=== PATIENT | female | born 1945 | race Caucasian/White ===

== ENCOUNTER 2024-09-30 10:44 | Emergency (ER) | payer OTHER, SELFPAY ==
[2024-09-30] VITALS (7 sets, daily range): BP systolic 102–147; BP diastolic 45–90; PULSE 74–84; RESP 16; TEMP 36–37; O2SAT 93–99; BMI 28.3
--- NOTE | ~2024-09-30 | XR_ITS ---
CLINICAL HISTORY: confusion, weakness 1 view chest x-ray Comparison: None provided Findings: No consolidation or effusion. Mild atelectasis of the lung base. Enlargement of the cardiopericardial silhouette. No acute fracture. IMPRESSION: 1. No acute findings. This document has been electronically signed by: Law Arredondo MD on 09/30/2024 14:19:39
--- NOTE | 2024-09-30 11:04 | ED_ITS ---
HPI - General Adult General Chief complaint: General Medical Stated complaint: medicated with unknown meds Time Seen by Provider: 09/30/24 11:23 Source: patient and family (patient's daughter) Mode of arrival: ambulatory Limitations: no limitations History of Present Illness ED Provider: Danni Bills PA-C HPI narrative: Patient is a 79 year old female with past medical history of dementia, DM, seizures, depression, and anxiety presenting to ER on 09/30 with her daughters with chief complaint of increased confusion and elopement from her home at 3AM this morning. Patient states she woke up around 3AM and felt confused and scared of the nighttime which caused her to leave her home. Her daughters were called by the police department as patient was found walking on street without shoes. Her daughters report that she has history of daytime elopements but has never eloped at nighttime before. Patient has VNA services twice daily and has a nursing home social worker for 7 hours daily as allowed by [facility]. Her daughters also report that the patient has a boyfriend of 7 years who visits her daily and has been known to give the patient his prescribed medications. Daughters believe the patient's boyfriend gave the patient his prescribed Klonopin, Seroquel, clonidine, and prazosin yesterday, which could be contributing to her increased confusion. They have tried to stop her boyfriend from doing this in the past without success; they were told the patient would need to file a restraining order however the patient does not want to do so. Patient denies confusion, pain, dizziness, anxiety, or any other symptoms currently. Associated symptoms: denies other symptoms Related Data Home Medications ?Medication ?Instructions ?Recorded ?Confirmed alendronate 70 mg tablet 70 mg PO WE@89909/30/24 amlodipine 5 mg-benazepril 20 mg 1 cap PO DAILY 09/30/24 capsule docusate sodium 100 mg capsule 100 mg PO BID PRN Const ipation 09/30/24 09/30/24 dulaglutide 4.5 mg/0.5 mL 4.5 mg subcut WE@89909/30/24 [facility] fluticasone propionate 220 2 puff inhalation BID 09/3009/30/24 mcg/actuation HFA aerosol inhaler gabapentin 400 mg capsule 400 mg PO TID 09/30/2409/30 insulin aspart U-100 100 unit/mL 16 - 22 unit subcut T ID 09/30/24 09/30/24 (3 mL) subcutaneous pen insulin glargine 100 unit/mL (3 30 unit subcut BEDTIME 09/30/24 09/30/24 mL) subcutaneous pen (Lantus Solostar U-100 Insulin) loratadine 10 mg tablet 10 mg PO DAILY 09/30/2409/19 lorazepam 1 mg tablet 1 mg PO BID 09/30/24 5 melatonin 5 mg tablet 5 mg PO BEDTIME 09/30/2409/19 metoprolol tartrate 50 mg tablet 50 mg PO BID 09/30/24 09/30/24 mirtazapine 30 mg tablet 30 mg PO BEDTIME 09/30/24 omeprazole 40 mg capsule,delayed 40 mg PO DAILY@0630 0 09/30/24 09/30/24 release polyethylene glycol 3350 17 17 g PO DAILY 09/30/2409/19 gram/dose oral powder (Miralax) risperidone 0.25 mg tablet 0.25 mg PO DAILY 09/30/24 0 09/30/24 risperidone 1 mg tablet 1 mg PO BEDTIME 09/30/2409/19 simvastatin 40 mg tablet 40 mg PO BEDTIME 09/30/24 topiramate 25 mg tablet 25 mg PO BID 09/30/24 triamcinolone acetonide 0.1 % 1 appl topical BID dry s calp 09/30/24 09/30/24 topical ointment vilazodone 40 mg tablet 40 mg PO DAILY 09/30/2409/19 zolpidem 10 mg tablet 10 mg PO BEDTIME 09/30/24 Allergies Allergy/AdvReac Type Severity Reaction Status Date / Time No Known Allergies Allergy Verified 09/30/24 11:09 Review of Systems 2 Constitutional: Constitutional: Reports no additional constitutional complaints, Denies chills, Denies fever(s) and Denies night sweats Eyes: Eyes: Reports no additional eye complaints, Denies blurry vision, Denies change in vision, Denies diplopia, Denies eye discharge, Denies loss of vision and Denies eye pain ENT: Denies dizziness Cardiovascular: Cardiovascular: Reports no additional cardiovascular complaints, Denies chest pain, Denies lightheadedness, Denies Loss of Consciousness and Denies dyspnea Respiratory: Respiratory: Reports no additional respiratory complaints and Denies dyspnea Gastrointestinal: Gastrointestinal: Reports no additional gastrointestinal complaints, Denies abdominal pain, Denies melena, Denies hematochezia, Denies change in bowel habits and Denies change in stool character Genitourinary: Genitourinary: Denies hematuria, Denies urinary frequency, Denies dysuria, Denies urinary incontinence, Denies urinary hesitancy and Denies urinary urgency Musculoskeletal: Musculoskeletal: Reports no additional musculoskeletal complaints, Denies numbness and Denies tingling Neurologic: Reports confusion (as reported by the patient's daughters), Denies dizziness, Denies loss of vision, Denies numbness and Denies tingling Psychiatric: Psychiatric: Reports no additional psychiatric complaints and Reports confusion (as reported by the patient's daughters) Endocrine: Endocrine: Reports no additional endocrine complaints Hematologic/Lymphatic: Hematologic/Lymphatic: Reports no additional hematologic/lymphatic complaints Allergic/Immunologic: Allergic/Immunologic: Reports no additional allergic/immunologic complaints PMFSH Past Medical History Attestation statement: The following information was validated with the patient. (all information validated with the patient's daughter) Source: old records reviewed, obtained from family (patient's daughters provided additional history and confirmed the history provided by the patient. ) and nursing notes reviewed Physical Exam ED Vital Signs: Vital Signs - 24 hr 10/04/24 14:00 10/04/24 19:38 10/04/24 19:48 Temperature 97.5 F 97.3 F Pulse Rate 72 95 93 Respiratory Rate 18 16 18 Blood Pressure 110/61 151/70 H Pulse Oximetry 90 L 97 Oxygen Delivery Method Room Air Room Air 10/04/24 20:07 10/05/24 05:50 Temperature 97 F Pulse Rate 93 64 Respiratory Rate 14 Blood Pressure 151/70 H 135/70 Pulse Oximetry 96 Oxygen Delivery Method Room Air BMI result Body Mass Index 28.3 Const General: cooperative, no acute distress, alert, awake and confusion (as reported by the patient's daughters) Nutritional Appearance: well nourished Orientation/consciousness: oriented to person, oriented to place and confusion (as reported by the patient's daughters) [facility] Head: Yes normal to inspection and Yes atraumatic Ears: hearing grossly normal bilaterally and external ears normal General nose exam: Normal external nose present, no nasal discharge noted and no epistaxis Face and sinus: Yes normal facial exam, No abrasion and No laceration Mouth: Normal oral and palatal mucosa present, no drooling and no muffled voice Eyes General: appearance normal, both eyes and all related structures Periorbital: periorbital findings normal Eyelids: Yes eyelids normal Conjunctivae: conjunctivae normal Pupils: Equal, round and reactive pupils present EOM: EOMs intact bilaterally Neck Neck: Yes normal visual inspection, Yes full ROM and Yes no lymphadenopathy Resp Effort & Inspection: normal respiratory effort and able to speak in complete sentences Neuro General: oriented to person, oriented to place, moves all extremities, CN's II- XI intact bilaterally and confusion (as reported by the patient's daughters) Cranial nerves: Yes Equal, round and reactive pupils present Extrem General: Yes normal to inspection, Yes full ROM and Yes capillary refill normal Psych Appearance: grossly normal Mental Status: other (Oriented to person and place only) Affect: normal affect Attitude: cooperative Thought process: Normal thought process present Thought content: Normal thought content present Insight: Good insight present (Psych) Course Course Course Narrative: This is a rapid medical exam performed by Austin Garcia NP: Additional HPI, ROS, PE not included below will be deferred to primary provider. Patient is a 79-year-old female with reported history of dementia, essential tremors, IDDM, presenting to the ED with daughter and [facility] who report that patient was found by police at 3am after wandering around outside. Daughter and [facility] feel she has been increasingly confused, not even recognizing her home. Only has [facility] services from 9-4. Daughter states that patient has a male combine inspector who comes to the patient's apartment and medicates her with his medications, daughter states this causes patient to become even more confused. Plan: labs, UA, viral panel to start, additional evaluation to be determined by primary provider 09/30/2024 1458 Danni Bills PA-C ---> Case management has requested a psychiatric consultation for this patient. Consult placed. Time: 15: Date: 10/01/24 Provider: SARAH Elena Patient in physician observation for case management needs. No acute events reported overnight.? No current issues or complaints. Patient does have a history of dementia, psych consult ordered for capacity. OT eval for MOCA and ACL. VS stable. Pending case management disposition. Will continue to monitor. 10/02/2024 0823 Danni Bills PA-C ----> Observation continues. Patient continues to be followed by case management. 10/03/24 1405 RENETTA Garcia: Physician observation continued, no overnight events reported by nursing. Lorazepam ordered for anxiety as patient prescribed as b.i.d. at home, is only ordered q.h.s. here. No note from psych citing change in Ativan dosing. Case management following for disposition. 10/04/24 15:00 RENETTA Garcia: Physician observation continued, no overnight events reported by nursing. Per case management, plan is for patient to discharge home on Tuesday when more services are available and daughters will provide overnight coverage. Cm following for disposition. Time: 08:31 Date: 10/05/24 Provider: Joana Abreu CNP Patient in physician observation for case management needs; pending discharge today with [facility] and daughter's facilitating overnight coverage 18/10 care. Has had psychiatry evaluation, given advanced dementia recommendation for invoking healthcare proxy. No acute events reported overnight.? Will continue to monitor. Anticipating discharge home with daughter and resumption of VNA services at 15:00 this evening Medications Administered Discontinued Medications Generic Name Dose Route Start Last Admin Trade Name Freq PRN Reason Stop Dose Admin Acetaminophen 650 mg 10/01/24 08:35 10/04/24 19:46 Acetaminophen 325 Mg Tablet PO 650 mg Q6H PRN Administration Pain, Moderate(Pain Scale 4-6) Amlodipine Besylate 5 mg 10/01/24 09:00 10/05/24 08:56 Amlodipine Besylate 5 Mg Tablet PO 5 mg DAILY TOMASA Administration Atorvastatin Calcium 20 mg 09/30/24 21:00 10/04/24 20:07 Atorvastatin Calcium 20 Mg Tablet PO 20 mg BEDTIME TOMASA Administration Diphenoxylate HCl/Atropine 2 tab 10/04/24 20:24 10/04/24 21:22 Diphenoxylate/Atrop 2.5/0.025 Tablet PO 10/04/24 20:25 2 tab ONCE ONE Administration Docusate Sodium 100 mg 09/30/24 13:45 10/01/24 20:40 Docusate Sodium 100 Mg Capsule PO 100 mg BID PRN Administration Constipation Fluticasone Propionate 2 puff 09/30/24 20:00 10/05/24 07:43 Fluticasone Propionate 250 Mcg Blst.W.Dev INHALE 2 puff RBID TOMASA Administration Gabapentin 400 mg 09/30/24 15:00 10/05/24 14:56 Gabapentin 400 Mg Capsule PO 400 mg TID TOMASA Administration Insulin Glargine 30 unit 09/30/24 21:00 10/04/24 20:06 Insulin Glargine,Hum.Rec.Anlog 100 Unit/Ml 10 Ml Vial SUBCUT 30 unit BEDTIME TOMASA Administration Insulin Human Lispro 0 unit 09/30/24 16:30 10/05/24 11:45 Insulin Lispro 100 Unit/Ml 3 Ml Vial SUBCUT 4 unit QIDACHS TOMASA Administration Protocol Lisinopril 20 mg 10/01/24 09:00 10/05/24 08:56 Lisinopril 20 Mg Tablet PO 20 mg DAILY TOMASA Administration Loratadine 10 mg 10/01/24 09:00 10/05/24 08:56 Loratadine 10 Mg Tablet PO 10 mg DAILY TOMASA Administration Lorazepam 2 mg 09/30/24 13:12 09/30/24 13:25 Lorazepam 1 Mg Tablet PO 09/30/24 13:13 2 mg ONCE ONE Administration Lorazepam 1 mg 09/30/24 21:00 10/01/24 08:27 Lorazepam 1 Mg Tablet PO 1 mg BID TOMASA Administration Lorazepam 1 mg 10/01/24 21:00 10/04/24 20:07 Lorazepam 1 Mg Tablet PO 1 mg BEDTIME TOMASA Administration Lorazepam 1 mg 10/02/24 15:50 10/02/24 15:54 Lorazepam 1 Mg Tablet PO 10/02/24 15:51 1 mg ONCE ONE Administration Lorazepam 1 mg 10/03/24 14:04 10/03/24 14:12 Lorazepam 1 Mg Tablet PO 10/03/24 14:05 1 mg ONCE ONE Administration Melatonin 6 mg 09/30/24 21:00 10/04/24 20:07 Melatonin 3 Mg Tablet PO 6 mg BEDTIME TOMASA Administration Metoprolol Tartrate 50 mg 09/30/24 21:00 10/05/24 08:55 Metoprolol Tartrate 50 Mg Tablet PO 50 mg BID TOMASA Administration Protocol Mirtazapine 30 mg 09/30/24 21:00 10/04/24 20:07 Mirtazapine 30 Mg Tablet PO 30 mg BEDTIME TOMASA Administration Omeprazole 40 mg 10/01/24 06:30 10/05/24 06:44 Omeprazole 40 Mg Capsule.Dr PO 40 mg DAILY@0630 TOMASA Administration Polyethylene Glycol 17 gm 10/01/24 09:00 10/05/24 08:55 Polyethylene Glycol 3350 17 Gm Powd.Pack PO 17 gm DAILY TOMASA Administration Risperidone 0.25 mg 09/30/24 13:15 10/05/24 08:56 Risperidone 0.25 Mg Tablet PO 0.25 mg DAILY TOMASA Administration Risperidone 1 mg 09/30/24 21:00 10/04/24 20:07 Risperidone 1 Mg Tablet PO 1 mg BEDTIME TOMASA Administration Topiramate 25 mg 09/30/24 21:00 10/05/24 08:56 Topiramate 25 Mg Tablet PO 25 mg BID TOMASA Administration Triamcinolone Acetonide 1 appl 09/30/24 21:00 10/05/24 08:55 Triamcinolone Acet 0.1 % Oint 15 Gm Tube TOPICAL 1 appl BID TOMASA Administration Vilazodone HCl 40 mg 09/30/24 13:15 09/30/24 14:52 Vilazodone Hcl 40 Mg Tablet PO Not Given DAILY TOMASA Vilazodone HCl 40 mg 09/30/24 14:00 10/05/24 08:56 Vilazodone Hcl 20 Mg Tablet PO 40 mg DAILY TOMASA Administration Zolpidem Tartrate 10 mg 09/30/24 21:00 09/30/24 21:27 Zolpidem Tartrate 5 Mg Tablet PO 10 mg BEDTIME TOMASA Administration Zolpidem Tartrate 10 mg 10/01/24 21:34 10/01/24 22:43 Zolpidem Tartrate 5 Mg Tablet PO 10/01/24 21:35 10 mg ONCE ONE Administration Medical Decision Making Medical Decision Making MDM Narrative: Patient is a 79 year old female with past medical history of dementia, DM, seizures, depression, and anxiety presenting to ER on 09/30 with her daughters with chief complaint of increased confusion and elopement from her home at 3AM this morning. Patient's physical exam showed a pleasantly confused individual. Patient's blood work showed a mildly elevated WBC count of 15.5 and sodium of 132 but otherwise unremarkable. Patient's WBC count is likely a stress reaction given there is no source of infection. Patient's urine showed no acute process. Patient's chest x-ray showed no acute process. I explained my physical exam findings as well as all test results to the patient and the patient's daughter. I answered all questions asked by the patient and the patient's daughter. Given the patient's worsening confusion / dementia and need for resources, will have patient remain in the department to be evaluated by the physical therapy and case management teams. Patient and the patient's daughter verbalized agreement and understanding with this treatment plan and the patient remaining in the department. Differential Diagnosis Differential Diagnoses: The differential diagnosis associated with the presentation includes Worsening confusion Admission/Observation Consideration of admission/observation: Escalation of care including admission/observation considered Patient would have been admitted to the hospital had her work up had any findings where hospital admission was appropriate and her clinical presentation warranted hospital admission. Lab Data [facility] Lab Attestation statement: I reviewed the patient's lab results. My interpretation of these results are in the MDM Rationale portion of this note. 10/01/24 13:04 09/30/24 11:20 Labs: Lab Results 09/30/24 09/30/24 09/30/24 Range/Units 11:20 11:21 13:03 WBC 15.5 H (4.8-10.8) X10*3/uL RBC 4.47 (4.20-5.50) X10*6/uL Hgb 10.9 L (12.0-16.0) g/dl Hct 34.1 L (37.0-47.0) % MCV 76.3 L (80.0-98.0) fL MCH 24.4 L (27.0-33.0) pg MCHC 32.0 (31.0-35.0) g/dl RDW 15.3 (11.0-16.0) % Plt Count 280 (160-400) X10*3/uL MPV 8.3 L (9.4-12.3) fL Immature Gran % (Auto) 0.4 (0.0-0.4) % Neut % (Auto) 79.7 H (45-73) % Lymph % (Auto) 13.6 L (20-40) % Potter % (Auto) 5.7 (2-11) % Eos % (Auto) 0.2 (0-4) % Baso % (Auto) 0.4 (0-2) % Lymph # (Auto) 2.1 (1.2-4.9) X10*3/uL Potter # (Auto) 0.9 (0.1-1.2) X10*3/uL Eos # (Auto) 0.0 (0.0-0.4) X10*3/uL Baso # (Auto) 0.1 (0.0-0.2) X10*3/uL Abs Immat Gran (auto) 0.06 H (0.00-0.03) X10*3/uL Absolute Neuts (auto) 12.4 H (2.0-8.3) x10*3/uL Absolute Nucleated RBC 0.000 (0.0-0.012) X10*3/uL Nucleated RBC % (auto) 0.0 (0.0-0.2) /100WBC Sodium 132 L (135-145) mmol/L Potassium 4.6 (3.3-5.1) mmol/L Chloride 98 (96-108) mmol/L Carbon Dioxide 23 (22-29) mmol/L Anion Gap 16 (12-20) BUN 8 L (9-16) mg/dL Creatinine 0.63 (0.5-1.4) mg/dL Estim Creat Clear Calc 75.6 Estimated GFR > 60 POC Glucose (60-115) mg/dL Random Glucose 242 H (60-115) mg/dL Estimat Average Glucose mg/dL Hemoglobin A1c % (<6.0) % Calcium 9.0 (8.4-10.2) mg/dL Iron (30-160) mcg/dL TIBC (228-428) mcg/dL % Saturation (15-50) % Unsat Iron Binding ug/dL Total Bilirubin 0.2 (0.0-1.0) mg/dL AST 33 H (5-31) U/L ALT 27 (0-31) U/L Alkaline Phosphatase 117 (39-117) U/L Total Protein 7.8 (6.5-8.0) g/dL Albumin 3.7 (3.5-5.0) g/dL Vitamin B12 (200-900) pg/mL Folate (> or = 4.0) ng/mL TSH (0.32-4.0) uIU/mL Urine Color Yellow Urine Appearance Clear Urine pH 6.5 (5.0-9.0) Ur Specific [place] 1.020 (1.005-1.025) Urine Protein 30 (1+) H (Neg-Trace) mg/dL Urine Glucose (UA) >=1000 H (Negative) mg/dL Urine Ketones Trace (Negative) mg/dL Urine Blood Negative (Negative) Urine Nitrite Negative (Negative) Ur Leukocyte Esterase Negative (Negative) Urine RBC 0-2 (0-2) /HPF Urine WBC 0-5 (0-5) /HPF Ur Squamous Epith Cells 3-5 (0-2) /HPF Urine Bacteria Trace (None Seen) Hyaline Casts 0-2 (0-2) /LPF Urine Opiates Screen Not Detected (Not Detect) Ur Buprenorphine Scrn Not Detected (Not Detect) ng/mL Ur Oxycodone Screen Not Detected (Not Detect) ng/mL Urine Methadone Screen Not Detected (Not Detect) ng/mL Urine Fentanyl Screen Not Detected (Not Detect) Ur Barbiturates Screen Not Detected (Not Detect) Ur Phencyclidine Scrn Not Detected (Not Detect) Ur Amphetamines Screen Not Detected (Not Detect) U Benzodiazepines Scrn Not Detected (Not Detect) Urine Cocaine Screen Not Detected (Not Detect) U Marijuana (THC) Screen Not Detected (Not Detect) Ethyl Alcohol < 10 mg/dL Influenza Type A (PCR) NEGATIVE (Negative) Influenza Type B (PCR) NEGATIVE (Negative) RSV RNA Qual (PCR) NEGATIVE (Negative) SARS-CoV-2 RNA (RT-PCR) NEGATIVE (Negative) 09/30/24 09/30/24 10/01/24 Range/Units 19:33 21:28 08:11 WBC (4.8-10.8) X10*3/uL RBC (4.20-5.50) X10*6/uL Hgb (12.0-16.0) g/dl Hct (37.0-47.0) % MCV (80.0-98.0) fL MCH (27.0-33.0) pg MCHC (31.0-35.0) g/dl RDW (11.0-16.0) % Plt Count (160-400) X10*3/uL MPV (9.4-12.3) fL Immature Gran % (Auto) (0.0-0.4) % Neut % (Auto) (45-73) % Lymph % (Auto) (20-40) % Potter % (Auto) (2-11) % Eos % (Auto) (0-4) % Baso % (Auto) (0-2) % Lymph # (Auto) (1.2-4.9) X10*3/uL Potter # (Auto) (0.1-1.2) X10*3/uL Eos # (Auto) (0.0-0.4) X10*3/uL Baso # (Auto) (0.0-0.2) X10*3/uL Abs Immat Gran (auto) (0.00-0.03) X10*3/uL Absolute Neuts (auto) (2.0-8.3) x10*3/uL Absolute Nucleated RBC (0.0-0.012) X10*3/uL Nucleated RBC % (auto) (0.0-0.2) /100WBC Sodium (135-145) mmol/L Potassium (3.3-5.1) mmol/L Chloride (96-108) mmol/L Carbon Dioxide (22-29) mmol/L Anion Gap (12-20) BUN (9-16) mg/dL Creatinine (0.5-1.4) mg/dL Estim Creat Clear Calc Estimated GFR POC Glucose 135 H 231 H 255 H (60-115) mg/dL Random Glucose (60-115) mg/dL Estimat Average Glucose mg/dL Hemoglobin A1c % (<6.0) % Calcium (8.4-10.2) mg/dL Iron (30-160) mcg/dL TIBC (228-428) mcg/dL % Saturation (15-50) % Unsat Iron Binding ug/dL Total Bilirubin (0.0-1.0) mg/dL AST (5-31) U/L ALT (0-31) U/L Alkaline Phosphatase (39-117) U/L Total Protein (6.5-8.0) g/dL Albumin (3.5-5.0) g/dL Vitamin B12 (200-900) pg/mL Folate (> or = 4.0) ng/mL TSH (0.32-4.0) uIU/mL Urine Color Urine Appearance Urine pH (5.0-9.0) Ur Specific [place] (1.005-1.025) Urine Protein (Neg-Trace) mg/dL Urine Glucose (UA) (Negative) mg/dL Urine Ketones (Negative) mg/dL Urine Blood (Negative) Urine Nitrite (Negative) Ur Leukocyte Esterase (Negative) Urine RBC (0-2) /HPF Urine WBC (0-5) /HPF Ur Squamous Epith Cells (0-2) /HPF Urine Bacteria (None Seen) Hyaline Casts (0-2) /LPF Urine Opiates Screen (Not Detect) Ur Buprenorphine Scrn (Not Detect) ng/mL Ur Oxycodone Screen (Not Detect) ng/mL Urine Methadone Screen (Not Detect) ng/mL Urine Fentanyl Screen (Not Detect) Ur Barbiturates Screen (Not Detect) Ur Phencyclidine Scrn (Not Detect) Ur Amphetamines Screen (Not Detect) U Benzodiazepines Scrn (Not Detect) Urine Cocaine Screen (Not Detect) U Marijuana (THC) Screen (Not Detect) Ethyl Alcohol mg/dL Influenza Type A (PCR) (Negative) Influenza Type B (PCR) (Negative) RSV RNA Qual (PCR) (Negative) SARS-CoV-2 RNA (RT-PCR) (Negative) 10/01/24 10/01/24 10/01/24 Range/Units 11:14 13:04 16:38 WBC 13.0 H (4.8-10.8) X10*3/uL RBC 4.23 (4.20-5.50) X10*6/uL Hgb 10.4 L (12.0-16.0) g/dl Hct 32.1 L (37.0-47.0) % MCV 75.9 L (80.0-98.0) fL MCH 24.6 L (27.0-33.0) pg MCHC 32.4 (31.0-35.0) g/dl RDW 15.5 (11.0-16.0) % Plt Count 263 (160-400) X10*3/uL MPV 8.2 L (9.4-12.3) fL Immature Gran % (Auto) 0.4 (0.0-0.4) % Neut % (Auto) 71.7 (45-73) % Lymph % (Auto) 20.8 (20-40) % Potter % (Auto) 5.6 (2-11) % Eos % (Auto) 1.1 (0-4) % Baso % (Auto) 0.4 (0-2) % Lymph # (Auto) 2.7 (1.2-4.9) X10*3/uL Potter # (Auto) 0.7 (0.1-1.2) X10*3/uL Eos # (Auto) 0.1 (0.0-0.4) X10*3/uL Baso # (Auto) 0.1 (0.0-0.2) X10*3/uL Abs Immat Gran (auto) 0.05 H (0.00-0.03) X10*3/uL Absolute Neuts (auto) 9.3 H (2.0-8.3) x10*3/uL Absolute Nucleated RBC 0.000 (0.0-0.012) X10*3/uL Nucleated RBC % (auto) 0.0 (0.0-0.2) /100WBC Sodium (135-145) mmol/L Potassium (3.3-5.1) mmol/L Chloride (96-108) mmol/L Carbon Dioxide (22-29) mmol/L Anion Gap (12-20) BUN (9-16) mg/dL Creatinine (0.5-1.4) mg/dL Estim Creat Clear Calc Estimated GFR POC Glucose 238 H 164 H (60-115) mg/dL Random Glucose (60-115) mg/dL Estimat Average Glucose 203 mg/dL Hemoglobin A1c % 8.7 H (<6.0) % Calcium (8.4-10.2) mg/dL Iron 43 (30-160) mcg/dL TIBC 257 (228-428) mcg/dL % Saturation 17 (15-50) % Unsat Iron Binding 214 ug/dL Total Bilirubin (0.0-1.0) mg/dL AST (5-31) U/L ALT (0-31) U/L Alkaline Phosphatase (39-117) U/L Total Protein (6.5-8.0) g/dL Albumin (3.5-5.0) g/dL Vitamin B12 335 (200-900) pg/mL Folate 12.5 (> or = 4.0) ng/mL TSH 1.49 (0.32-4.0) uIU/mL Urine Color Urine Appearance Urine pH (5.0-9.0) Ur Specific [place] (1.005-1.025) Urine Protein (Neg-Trace) mg/dL Urine Glucose (UA) (Negative) mg/dL Urine Ketones (Negative) mg/dL Urine Blood (Negative) Urine Nitrite (Negative) Ur Leukocyte Esterase (Negative) Urine RBC (0-2) /HPF Urine WBC (0-5) /HPF Ur Squamous Epith Cells (0-2) /HPF Urine Bacteria (None Seen) Hyaline Casts (0-2) /LPF Urine Opiates Screen (Not Detect) Ur Buprenorphine Scrn (Not Detect) ng/mL Ur Oxycodone Screen (Not Detect) ng/mL Urine Methadone Screen (Not Detect) ng/mL Urine Fentanyl Screen (Not Detect) Ur Barbiturates Screen (Not Detect) Ur Phencyclidine Scrn (Not Detect) Ur Amphetamines Screen (Not Detect) U Benzodiazepines Scrn (Not Detect) Urine Cocaine Screen (Not Detect) U Marijuana (THC) Screen (Not Detect) Ethyl Alcohol mg/dL Influenza Type A (PCR) (Negative) Influenza Type B (PCR) (Negative) RSV RNA Qual (PCR) (Negative) SARS-CoV-2 RNA (RT-PCR) (Negative) 10/01/24 10/02/24 10/02/24 Range/Units 20:20 07:17 11:30 WBC (4.8-10.8) X10*3/uL RBC (4.20-5.50) X10*6/uL Hgb (12.0-16.0) g/dl Hct (37.0-47.0) % MCV (80.0-98.0) fL MCH (27.0-33.0) pg MCHC (31.0-35.0) g/dl RDW (11.0-16.0) % Plt Count (160-400) X10*3/uL MPV (9.4-12.3) fL Immature Gran % (Auto) (0.0-0.4) % Neut % (Auto) (45-73) % Lymph % (Auto) (20-40) % Potter % (Auto) (2-11) % Eos % (Auto) (0-4) % Baso % (Auto) (0-2) % Lymph # (Auto) (1.2-4.9) X10*3/uL Potter # (Auto) (0.1-1.2) X10*3/uL Eos # (Auto) (0.0-0.4) X10*3/uL Baso # (Auto) (0.0-0.2) X10*3/uL Abs Immat Gran (auto) (0.00-0.03) X10*3/uL Absolute Neuts (auto) (2.0-8.3) x10*3/uL Absolute Nucleated RBC (0.0-0.012) X10*3/uL Nucleated RBC % (auto) (0.0-0.2) /100WBC Sodium (135-145) mmol/L Potassium (3.3-5.1) mmol/L Chloride (96-108) mmol/L Carbon Dioxide (22-29) mmol/L Anion Gap (12-20) BUN (9-16) mg/dL Creatinine (0.5-1.4) mg/dL Estim Creat Clear Calc Estimated GFR POC Glucose 277 H 166 H 204 H (60-115) mg/dL Random Glucose (60-115) mg/dL Estimat Average Glucose mg/dL Hemoglobin A1c % (<6.0) % Calcium (8.4-10.2) mg/dL Iron (30-160) mcg/dL TIBC (228-428) mcg/dL % Saturation (15-50) % Unsat Iron Binding ug/dL Total Bilirubin (0.0-1.0) mg/dL AST (5-31) U/L ALT (0-31) U/L Alkaline Phosphatase (39-117) U/L Total Protein (6.5-8.0) g/dL Albumin (3.5-5.0) g/dL Vitamin B12 (200-900) pg/mL Folate (> or = 4.0) ng/mL TSH (0.32-4.0) uIU/mL Urine Color Urine Appearance Urine pH (5.0-9.0) Ur Specific [place] (1.005-1.025) Urine Protein (Neg-Trace) mg/dL Urine Glucose (UA) (Negative) mg/dL Urine Ketones (Negative) mg/dL Urine Blood (Negative) Urine Nitrite (Negative) Ur Leukocyte Esterase (Negative) Urine RBC (0-2) /HPF Urine WBC (0-5) /HPF Ur Squamous Epith Cells (0-2) /HPF Urine Bacteria (None Seen) Hyaline Casts (0-2) /LPF Urine Opiates Screen (Not Detect) Ur Buprenorphine Scrn (Not Detect) ng/mL Ur Oxycodone Screen (Not Detect) ng/mL Urine Methadone Screen (Not Detect) ng/mL Urine Fentanyl Screen (Not Detect) Ur Barbiturates Screen (Not Detect) Ur Phencyclidine Scrn (Not Detect) Ur Amphetamines Screen (Not Detect) U Benzodiazepines Scrn (Not Detect) Urine Cocaine Screen (Not Detect) U Marijuana (THC) Screen (Not Detect) Ethyl Alcohol mg/dL Influenza Type A (PCR) (Negative) Influenza Type B (PCR) (Negative) RSV RNA Qual (PCR) (Negative) SARS-CoV-2 RNA (RT-PCR) (Negative) 10/02/24 10/02/2425 Range/Units 16:37 21:16 07:38 WBC (4.8-10.8) X10*3/uL RBC (4.20-5.50) X10*6/uL Hgb (12.0-16.0) g/dl Hct (37.0-47.0) % MCV (80.0-98.0) fL MCH (27.0-33.0) pg MCHC (31.0-35.0) g/dl RDW (11.0-16.0) % Plt Count (160-400) X10*3/uL MPV (9.4-12.3) fL Immature Gran % (Auto) (0.0-0.4) % Neut % (Auto) (45-73) % Lymph % (Auto) (20-40) % Potter % (Auto) (2-11) % Eos % (Auto) (0-4) % Baso % (Auto) (0-2) % Lymph # (Auto) (1.2-4.9) X10*3/uL Potter # (Auto) (0.1-1.2) X10*3/uL Eos # (Auto) (0.0-0.4) X10*3/uL Baso # (Auto) (0.0-0.2) X10*3/uL Abs Immat Gran (auto) (0.00-0.03) X10*3/uL Absolute Neuts (auto) (2.0-8.3) x10*3/uL Absolute Nucleated RBC (0.0-0.012) X10*3/uL Nucleated RBC % (auto) (0.0-0.2) /100WBC Sodium (135-145) mmol/L Potassium (3.3-5.1) mmol/L Chloride (96-108) mmol/L Carbon Dioxide (22-29) mmol/L Anion Gap (12-20) BUN (9-16) mg/dL Creatinine (0.5-1.4) mg/dL Estim Creat Clear Calc Estimated GFR POC Glucose 233 H 212 H 160 H (60-115) mg/dL Random Glucose (60-115) mg/dL Estimat Average Glucose mg/dL Hemoglobin A1c % (<6.0) % Calcium (8.4-10.2) mg/dL Iron (30-160) mcg/dL TIBC (228-428) mcg/dL % Saturation (15-50) % Unsat Iron Binding ug/dL Total Bilirubin (0.0-1.0) mg/dL AST (5-31) U/L ALT (0-31) U/L Alkaline Phosphatase (39-117) U/L Total Protein (6.5-8.0) g/dL Albumin (3.5-5.0) g/dL Vitamin B12 (200-900) pg/mL Folate (> or = 4.0) ng/mL TSH (0.32-4.0) uIU/mL Urine Color Urine Appearance Urine pH (5.0-9.0) Ur Specific [place] (1.005-1.025) Urine Protein (Neg-Trace) mg/dL Urine Glucose (UA) (Negative) mg/dL Urine Ketones (Negative) mg/dL Urine Blood (Negative) Urine Nitrite (Negative) Ur Leukocyte Esterase (Negative) Urine RBC (0-2) /HPF Urine WBC (0-5) /HPF Ur Squamous Epith Cells (0-2) /HPF Urine Bacteria (None Seen) Hyaline Casts (0-2) /LPF Urine Opiates Screen (Not Detect) Ur Buprenorphine Scrn (Not Detect) ng/mL Ur Oxycodone Screen (Not Detect) ng/mL Urine Methadone Screen (Not Detect) ng/mL Urine Fentanyl Screen (Not Detect) Ur Barbiturates Screen (Not Detect) Ur Phencyclidine Scrn (Not Detect) Ur Amphetamines Screen (Not Detect) U Benzodiazepines Scrn (Not Detect) Urine Cocaine Screen (Not Detect) U Marijuana (THC) Screen (Not Detect) Ethyl Alcohol mg/dL Influenza Type A (PCR) (Negative) Influenza Type B (PCR) (Negative) RSV RNA Qual (PCR) (Negative) SARS-CoV-2 RNA (RT-PCR) (Negative) 10/03/24 10/03/24 10/03/24 Range/Units 12:04 16:25 20:19 WBC (4.8-10.8) X10*3/uL RBC (4.20-5.50) X10*6/uL Hgb (12.0-16.0) g/dl Hct (37.0-47.0) % MCV (80.0-98.0) fL MCH (27.0-33.0) pg MCHC (31.0-35.0) g/dl RDW (11.0-16.0) % Plt Count (160-400) X10*3/uL MPV (9.4-12.3) fL Immature Gran % (Auto) (0.0-0.4) % Neut % (Auto) (45-73) % Lymph % (Auto) (20-40) % Potter % (Auto) (2-11) % Eos % (Auto) (0-4) % Baso % (Auto) (0-2) % Lymph # (Auto) (1.2-4.9) X10*3/uL Potter # (Auto) (0.1-1.2) X10*3/uL Eos # (Auto) (0.0-0.4) X10*3/uL Baso # (Auto) (0.0-0.2) X10*3/uL Abs Immat Gran (auto) (0.00-0.03) X10*3/uL Absolute Neuts (auto) (2.0-8.3) x10*3/uL Absolute Nucleated RBC (0.0-0.012) X10*3/uL Nucleated RBC % (auto) (0.0-0.2) /100WBC Sodium (135-145) mmol/L Potassium (3.3-5.1) mmol/L Chloride (96-108) mmol/L Carbon Dioxide (22-29) mmol/L Anion Gap (12-20) BUN (9-16) mg/dL Creatinine (0.5-1.4) mg/dL Estim Creat Clear Calc Estimated GFR POC Glucose 199 H 159 H 186 H (60-115) mg/dL Random Glucose (60-115) mg/dL Estimat Average Glucose mg/dL Hemoglobin A1c % (<6.0) % Calcium (8.4-10.2) mg/dL Iron (30-160) mcg/dL TIBC (228-428) mcg/dL % Saturation (15-50) % Unsat Iron Binding ug/dL Total Bilirubin (0.0-1.0) mg/dL AST (5-31) U/L ALT (0-31) U/L Alkaline Phosphatase (39-117) U/L Total Protein (6.5-8.0) g/dL Albumin (3.5-5.0) g/dL Vitamin B12 (200-900) pg/mL Folate (> or = 4.0) ng/mL TSH (0.32-4.0) uIU/mL Urine Color Urine Appearance Urine pH (5.0-9.0) Ur Specific [place] (1.005-1.025) Urine Protein (Neg-Trace) mg/dL Urine Glucose (UA) (Negative) mg/dL Urine Ketones (Negative) mg/dL Urine Blood (Negative) Urine Nitrite (Negative) Ur Leukocyte Esterase (Negative) Urine RBC (0-2) /HPF Urine WBC (0-5) /HPF Ur Squamous Epith Cells (0-2) /HPF Urine Bacteria (None Seen) Hyaline Casts (0-2) /LPF Urine Opiates Screen (Not Detect) Ur Buprenorphine Scrn (Not Detect) ng/mL Ur Oxycodone Screen (Not Detect) ng/mL Urine Methadone Screen (Not Detect) ng/mL Urine Fentanyl Screen (Not Detect) Ur Barbiturates Screen (Not Detect) Ur Phencyclidine Scrn (Not Detect) Ur Amphetamines Screen (Not Detect) U Benzodiazepines Scrn (Not Detect) Urine Cocaine Screen (Not Detect) U Marijuana (THC) Screen (Not Detect) Ethyl Alcohol mg/dL Influenza Type A (PCR) (Negative) Influenza Type B (PCR) (Negative) RSV RNA Qual (PCR) (Negative) SARS-CoV-2 RNA (RT-PCR) (Negative) 10/04/24 10/04/24 10/04/24 Range/Units 07:17 11:49 17:01 WBC (4.8-10.8) X10*3/uL RBC (4.20-5.50) X10*6/uL Hgb (12.0-16.0) g/dl Hct (37.0-47.0) % MCV (80.0-98.0) fL MCH (27.0-33.0) pg MCHC (31.0-35.0) g/dl RDW (11.0-16.0) % Plt Count (160-400) X10*3/uL MPV (9.4-12.3) fL Immature Gran % (Auto) (0.0-0.4) % Neut % (Auto) (45-73) % Lymph % (Auto) (20-40) % Potter % (Auto) (2-11) % Eos % (Auto) (0-4) % Baso % (Auto) (0-2) % Lymph # (Auto) (1.2-4.9) X10*3/uL Potter # (Auto) (0.1-1.2) X10*3/uL Eos # (Auto) (0.0-0.4) X10*3/uL Baso # (Auto) (0.0-0.2) X10*3/uL Abs Immat Gran (auto) (0.00-0.03) X10*3/uL Absolute Neuts (auto) (2.0-8.3) x10*3/uL Absolute Nucleated RBC (0.0-0.012) X10*3/uL Nucleated RBC % (auto) (0.0-0.2) /100WBC Sodium (135-145) mmol/L Potassium (3.3-5.1) mmol/L Chloride (96-108) mmol/L Carbon Dioxide (22-29) mmol/L Anion Gap (12-20) BUN (9-16) mg/dL Creatinine (0.5-1.4) mg/dL Estim Creat Clear Calc Estimated GFR POC Glucose 170 H 192 H 158 H (60-115) mg/dL Random Glucose (60-115) mg/dL Estimat Average Glucose mg/dL Hemoglobin A1c % (<6.0) % Calcium (8.4-10.2) mg/dL Iron (30-160) mcg/dL TIBC (228-428) mcg/dL % Saturation (15-50) % Unsat Iron Binding ug/dL Total Bilirubin (0.0-1.0) mg/dL AST (5-31) U/L ALT (0-31) U/L Alkaline Phosphatase (39-117) U/L Total Protein (6.5-8.0) g/dL Albumin (3.5-5.0) g/dL Vitamin B12 (200-900) pg/mL Folate (> or = 4.0) ng/mL TSH (0.32-4.0) uIU/mL Urine Color Urine Appearance Urine pH (5.0-9.0) Ur Specific [place] (1.005-1.025) Urine Protein (Neg-Trace) mg/dL Urine Glucose (UA) (Negative) mg/dL Urine Ketones (Negative) mg/dL Urine Blood (Negative) Urine Nitrite (Negative) Ur Leukocyte Esterase (Negative) Urine RBC (0-2) /HPF Urine WBC (0-5) /HPF Ur Squamous Epith Cells (0-2) /HPF Urine Bacteria (None Seen) Hyaline Casts (0-2) /LPF Urine Opiates Screen (Not Detect) Ur Buprenorphine Scrn (Not Detect) ng/mL Ur Oxycodone Screen (Not Detect) ng/mL Urine Methadone Screen (Not Detect) ng/mL Urine Fentanyl Screen (Not Detect) Ur Barbiturates Screen (Not Detect) Ur Phencyclidine Scrn (Not Detect) Ur Amphetamines Screen (Not Detect) U Benzodiazepines Scrn (Not Detect) Urine Cocaine Screen (Not Detect) U Marijuana (THC) Screen (Not Detect) Ethyl Alcohol mg/dL Influenza Type A (PCR) (Negative) Influenza Type B (PCR) (Negative) RSV RNA Qual (PCR) (Negative) SARS-CoV-2 RNA (RT-PCR) (Negative) 10/04/24 10/05/24 10/05/24 Range/Units 19:59 07:18 11:39 WBC (4.8-10.8) X10*3/uL RBC (4.20-5.50) X10*6/uL Hgb (12.0-16.0) g/dl Hct (37.0-47.0) % MCV (80.0-98.0) fL MCH (27.0-33.0) pg MCHC (31.0-35.0) g/dl RDW (11.0-16.0) % Plt Count (160-400) X10*3/uL MPV (9.4-12.3) fL Immature Gran % (Auto) (0.0-0.4) % Neut % (Auto) (45-73) % Lymph % (Auto) (20-40) % Potter % (Auto) (2-11) % Eos % (Auto) (0-4) % Baso % (Auto) (0-2) % Lymph # (Auto) (1.2-4.9) X10*3/uL Potter # (Auto) (0.1-1.2) X10*3/uL Eos # (Auto) (0.0-0.4) X10*3/uL Baso # (Auto) (0.0-0.2) X10*3/uL Abs Immat Gran (auto) (0.00-0.03) X10*3/uL Absolute Neuts (auto) (2.0-8.3) x10*3/uL Absolute Nucleated RBC (0.0-0.012) X10*3/uL Nucleated RBC % (auto) (0.0-0.2) /100WBC Sodium (135-145) mmol/L Potassium (3.3-5.1) mmol/L Chloride (96-108) mmol/L Carbon Dioxide (22-29) mmol/L Anion Gap (12-20) BUN (9-16) mg/dL Creatinine (0.5-1.4) mg/dL Estim Creat Clear Calc Estimated GFR POC Glucose 237 H 168 H 217 H (60-115) mg/dL Random Glucose (60-115) mg/dL Estimat Average Glucose mg/dL Hemoglobin A1c % (<6.0) % Calcium (8.4-10.2) mg/dL Iron (30-160) mcg/dL TIBC (228-428) mcg/dL % Saturation (15-50) % Unsat Iron Binding ug/dL Total Bilirubin (0.0-1.0) mg/dL AST (5-31) U/L ALT (0-31) U/L Alkaline Phosphatase (39-117) U/L Total Protein (6.5-8.0) g/dL Albumin (3.5-5.0) g/dL Vitamin B12 (200-900) pg/mL Folate (> or = 4.0) ng/mL TSH (0.32-4.0) uIU/mL Urine Color Urine Appearance Urine pH (5.0-9.0) Ur Specific [place] (1.005-1.025) Urine Protein (Neg-Trace) mg/dL Urine Glucose (UA) (Negative) mg/dL Urine Ketones (Negative) mg/dL Urine Blood (Negative) Urine Nitrite (Negative) Ur Leukocyte Esterase (Negative) Urine RBC (0-2) /HPF Urine WBC (0-5) /HPF Ur Squamous Epith Cells (0-2) /HPF Urine Bacteria (None Seen) Hyaline Casts (0-2) /LPF Urine Opiates Screen (Not Detect) Ur Buprenorphine Scrn (Not Detect) ng/mL Ur Oxycodone Screen (Not Detect) ng/mL Urine Methadone Screen (Not Detect) ng/mL Urine Fentanyl Screen (Not Detect) Ur Barbiturates Screen (Not Detect) Ur Phencyclidine Scrn (Not Detect) Ur Amphetamines Screen (Not Detect) U Benzodiazepines Scrn (Not Detect) Urine Cocaine Screen (Not Detect) U Marijuana (THC) Screen (Not Detect) Ethyl Alcohol mg/dL Influenza Type A (PCR) (Negative) Influenza Type B (PCR) (Negative) RSV RNA Qual (PCR) (Negative) SARS-CoV-2 RNA (RT-PCR) (Negative) Independent Interpretation I performed an independent interpretation of an: Plain X-Ray Interpretation: My interpretation is in agreement with the radiologist's impression of this imaging study. L CLINICAL HISTORY: confusion, weakness 1 view chest x-ray Comparison: None provided Findings: No consolidation or effusion. Mild atelectasis of the lung base. Enlargement of the cardiopericardial silhouette. No acute fracture. IMPRESSION: 1. No acute findings. This document has been electronically signed by: Law Arredondo MD on 09/30/2024 14:19:39 Dictated By: Law Arredondo MD Signed By: Electronically signed by Law Arredondo MD 09/30/24 1420 Radiology Impression Discussion of test interpretation with radiology: I have reviewed the radiologist's reading. Independent Historian Clinical information obtained from an independent historian. History obtained from or confirmed by: Other (patient's daughter provided additional history and confirmed the history provided by the patient. ) Chronic Conditions Patient?s care impacted by: Diabetes Discharge Plan Discharge Clinical Impression: Confusion Patient Disposition: Home, Self-Care Additional Instructions: Discharge home with VNA services. Prescriptions: No Action alendronate 70 mg tablet 70 mg PO WE@0900 gabapentin 400 mg capsule 400 mg PO TID topiramate 25 mg tablet 25 mg PO BID risperidone 0.25 mg tablet 0.25 mg PO DAILY omeprazole 40 mg capsule,delayed release(DR/EC) 40 mg PO DAILY@0630 simvastatin 40 mg tablet 40 mg PO BEDTIME amlodipine-benazepril 5-20 mg capsule 1 cap PO DAILY mirtazapine 30 mg tablet 30 mg PO BEDTIME triamcinolone acetonide 0.1 % ointment 1 appl topical BID metoprolol tartrate 50 mg tablet 50 mg PO BID fluticasone propionate 220 mcg/actuation HFA aerosol inhaler 2 puff INHALATION BID lorazepam 1 mg tablet 1 mg PO BID zolpidem 10 mg tablet 10 mg PO BEDTIME risperidone 1 mg tablet 1 mg PO BEDTIME loratadine 10 mg tablet 10 mg PO DAILY insulin aspart U-100 100 unit/mL (3 mL) insulin pen 16 - 22 unit SUBCUT TID melatonin 5 mg tablet 5 mg PO BEDTIME vilazodone 40 mg tablet 40 mg PO DAILY Trulicity 4.5 mg/0.5 mL pen injector 4.5 mg subcut WE@0900 docusate sodium 100 mg Capsule 100 mg PO BID PRN (Reason: Constipation) polyethylene glycol 3350 [Miralax] 17 gram/dose Powder 17 g PO DAILY insulin glargine [Lantus Solostar U-100 Insulin] 100 unit/mL (3 mL) insulin pen 30 unit subcut BEDTIME Referrals: [facility] [Outside] Interventions: ED Discharge Assessment Last Done: 10/05/24 16:01 Discharge Date/Time: 10/05/24 16:02 Print Language: Turkmen
[2024-09-30 11:29] LABS: MANUAL DIFF FLAG NO
--- OUTSIDE RECORDS SUMMARY | 2024-09-30 11:29 | XMS_ITS | Referral Summary ---
Author Organization [facility] Address [address] [place] [address] Care Team Providers Care Car Tracer Name Role Phone Ken Arvizu Primary Care Provider [phone] Encounters Date Type Department Care Team Description 09/13/2024 10:45 AM EDT Follow-Up [facility] [address] [place] [address] [address] [place] [address] Minor López MD Tremor (Primary Dx); Chronic daily headache 07/16/2024 Orders Only [facility] [address] [place] [address] [address] [place] [address] Karlie Rm MD 07/13/2024 Refill [facility] [address] [place] [address] [address] Medical [place] [address] Minor López MD 07/06/2024 Telephone [facility] [address] [place] [address] [address] Medical [place] [address] Minor López MD from Last 3 Months Allergies Active Allergy Reactions Criticality Noted Date Comments Ibuprofen Nausea,Nausea And Vomiting High 4 Levofloxacin Hives 10/30/2013 Morphine Anxiety,Palpitations High 10/30/2013 Penicillins Hives,Itching,Rash High 10/30/2013 Medications alendronate (FOSAMAX) 70 mg tablet SMARTSI Tablet(s) By Mouth Once a Week 08/27/19 24 Active benztropine (COGENTIN) 1 mg tablet SMARTSI Tablet(s) By Mouth Daily 11/14/19 24 Active Vitamin D3 50 mcg (2,000 unit) capsule SMARTSI Capsule(s) By Mouth Daily 10/08/19 24 Active docusate sodium (COLACE) 100 mg capsule SMARTSI Capsule(s) By Mouth Twice Daily 12/02/19 24 Active Trulicity 4.5 mg/0.5 mL injection dose SMARTSI Pre-Filled Pen Syringe SUB-Q Once a Week 11/21/19 24 Active fluticasone propionate (FLOVENT HFA) 220 mcg inhaler SMARTSI Puff(s) By Mouth Twice Daily 09/19/19 24 Active gabapentin (NEURONTIN) 400 mg capsule SMARTSI Capsule(s) By Mouth 3 Times Daily 11/05/19 24 Active NovoLOG Flexpen U-100 Insulin 100 unit/mL (3 mL) injection pen INJECT SUBCUTANEOUSLY 3 (THREE) TIMES A DAY WITH MEALS VIA sliding scale 150-200 16u; 201-250 17u; 251-300 18u; 301-350 19u; 351-400 20u) 12/02/19 24 Active Lantus Solostar U-100 Insulin 100 unit/mL (3 mL) pen injection SMARTSI Unit(s) SUB-Q Every Night 11/26/19 24 Active LORazepam (ATIVAN) 1 mg tablet SMARTSI Tablet(s) By Mouth Morning-Evening 11/17/19 24 Active metoprolol tartrate (LOPRESSOR) 50 mg tablet SMARTSI Tablet(s) By Mouth Twice Daily 11/30/19 24 Active mirtazapine (REMERON) 30 mg tablet SMARTSI Tablet(s) By Mouth Every Night 11/17/19 24 Active omeprazole (PriLOSEC) 40 mg capsule SMARTSI Capsule(s) By Mouth Daily 11/26/19 24 Active risperiDONE (RisperDAL) 0.25 mg tablet SMARTSI Tablet(s) By Mouth Every Morning 11/24/19 24 Active simvastatin (ZOCOR) 40 mg tablet SMARTSI Tablet(s) By Mouth Every Night 11/30/19 24 Active senna 8.6 mg tablet SMARTSI Tablet(s) By Mouth Daily 11/30/19 24 Active vilazodone (VIIBRYD) 40 mg SMARTSI Tablet(s) By Mouth Every Morning 11/30/19 24 Active clonazePAM (KlonoPIN) 1 mg tablet 1 tablet 30 minutes before the study. Could make her sleepy patient should not drive. 2 tablet 01/02/20 24 Active zolpidem (AMBIEN) 10 mg tablet Take 10 mg by mouth nightly as needed for sleep. Active amLODIPine-be nazepriL (LotreL) 5-20 mg per capsule Take 1 capsule by mouth once a day. Active meclizine (ANTIVERT) 25 mg tablet Take 25 mg by mouth 3 times a day as needed for dizziness. Active topiramate (TOPAMAX) 25 mg tablet Take 1 tablet (25 mg total) by mouth 2 times a day. 180 tablet 3 09/14/19 25 2025 Active divalproex ER (DEPAKOTE ER) 250 mg tablet Take 1 tablet (250 mg total) by mouth once a day. 90 tablet 3 07/17/19 25 2024 Discontinued Active Problems Problem Noted Date Diagnosed Date Chronic daily headache 03/08/2024 Tremor 12/07/2023 Memory loss 12/07/2023 Social History Tobacco Use Types Packs/Day Years Used Date Smoking Tobacco: Never Smokeless Tobacco: Never Tobacco Cessation:Counseling Given: Not Answered Alcohol Use Standard Drinks/Week Comments Never 0 (1 standard drink = 0.6 oz pur e alcohol) Comments Unknown Sex and Gender Information Value Date Recorded Sex Assigned at Female 05/18/2023 4:26 PM EST Legal Sex Female 4:32 PM EDT Gender Identity Female 01/25/2024 7:18 PM EDT Sexual Orientation Straight 01/25/2024 7: 18 PM EDT Last Filed Vital Signs Vital Sign Reading Time Taken Comments Blood Pressure 136/73 09/13/2024 10:55 AM EDT Pulse 83 09/13/2024 10:55 AM EDT Temperature 36.3 C (97.4 F) 09/13/2024 10:55 AM EDT Respiratory Rate - - Oxygen Saturation 95% 09/13/2024 10:55 AM EDT Inhaled Oxygen Concentration - - Weight 79.8 kg (176 lb) 09/13/2024 10:55 AM EDT Height - - Body Mass Index - - Plan of Treatment Upcoming Encounters Date Type Department Care Team (Late st Contact Info) Description 03/14/2025 10:45 AM EST Follow-Up [facility] [address] [facility] [address] Medical [place] [address] Minor López MD [address] [place] [phone] [facility] Care Teams Car Tracer Relationship Specialty Start Date End Date Ken Arvizu PCP - General Internal Medicine 04/14/23
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
--- OUTSIDE RECORDS SUMMARY | 2024-09-30 11:29 | XMS_ITS | Data Portability ---
Author Organization [place] [facility] Address [address] [place] [phone] Care Team Providers Care Reception Centre Manager Name Role Phone [facility] Primary Care Provi jessica Assessment Encounter Date Assessment Date Assessment LastModified by Organization Details LastModified Time 04/15/2021 04/15/2021 Time On Scene with Patient: 00:52:21 MDM DDX Likely Viral URI few symptoms of nasal congestion, and intermittent mild dry cough, no fever chills. Abdominal Bloating consider H Pylori ( has had in 2019) she is passing gas Abdomin is large and round, very soft, no masses , she has some mild discomfort periumbilical region. Also considered Diverticulitis, however, no fever, chills, nausea, vomiting, no blood in stool Doubtful for obstruction as there is no N/V. The loose stool is an every day event for her the difference today was a 3rd episode, and some mild periumbilical discomfort. Specimen cup was left and hat to catch stool, advised a check for H Pylori could only be performed on solid stool but can do stool culture, no history for O&P, Salmonella, Shigella, Giardia, no recent antibiotics. [email or web address] Not available 04/15/2021 15:36:01 Plan of Treatment Reminders Order Date Submit Date Provider Last Modified By Organization Details Last Modified Time Details Appointments None recorded. Lab unlisted lab - covid-19 (novel coronaviru s) PCR 2021 022 [email or web address] [facility] (Centralized Electronic Ordering - All Locations), Patient Can Go To The Location Of Their Choice, [address] 10:34:59 Referral None recorded. Procedures None recorded. Surgeries None recorded. Imaging None recorded. Medication Orders None recorded. Patient TargetsNo targets recorded. Patient InstructionsNo instructions recorded. Reason for Referral None Reported. Results Created Date Observation Date Name Description Value Unit Range Abnormal Flag Note LastModifiedBy Organization Detail LastModifiedTime 04/15/1904/17/20212018 NOVEL CORON AVIRU S, PCR covid-19, PCR NOT DETEC ROSA Refer ence range : NOT DETEC ROSA (NOTE ) A Not Detec rosa resul t means that SARS- CoV-2 RNA was not prese nt in the speci men above the limit of detec tion. A Not Detec rosa resul t does not rule out the possi bilit y of COVID -19 and shoul d not be used as the sole basis for treat ment or patie nt manag ement decis ions. If COVID -19 is still suspe cted, based on expos ure histo ry toget her with other clini roxana findi ngs, re-te sting shoul d be consi dered in the pedro xt of clini roxana obser vatio ns and epide miolo gical data for patie nt manag ement decis ions. = Test Metho d: Nucle ic Acid Ampli ficat ion Test inclu ding rever se trans cript ion polym erase chain react ion (RT-P CR) and trans cript ion media rosa ampli ficat ion (TMA) . The test metho d meets the [place] Cente rs for Disea se Contr ol and preve ntion (CDC) pre depar ture and arriv al requi remen t for viral test for COVID -19 dated 2020. Testi ng requi remen ts for travsong mejia e with time. The patie nt is respo nsibl e for deter minin g the test requi remen ts for each natio n while they are trave ling. This test has been autho rized by the FDA under an Emerg ency Use Autho rizat ion (EUA) for use by autho rized labor atori es. = Pleas e revie w the Fact Sheet s and FDA autho rized label ing avail able for healt h care provi ders and patie nts using the follo wing websi marizol: https ://ww w.que stdia gnost [employer].c om/ho me/Co vid-1 9/HCP /Ques tLDT/ fact- sheet .html https ://kiley zhang.mary stdia gnost ics.c om/ho me/Co vid-1 9/Pat ients /Ques tLDT/ fact- sheet .html = Due to the curre nt publi c healt h emerg ency, [facility] is accep ting sampl es from appro priat e clini roxana sourc es colle cted using wide varie ty of swabs and trans port media for COVID -19. Not detec rosa test resul ts deriv ed from speci mens recei jorje in non- comme rcial ly manuf actur ed viral colle ction kits or those not yet autho rized by FDA for COVID -19 testi ng shoul d be cauti ously evalu ated and take extra preca ution s such as addit ional clini roxana monit oring , inclu ding colle ction of an addit ional speci men. = Addit ional infor matio n about COVID -19 can be found at the [employer] websi te: www.[employer]/ Covid 19. Test Perfo rmed by: [employer], [address], [place]. [address] . Labor atory Direc tor: Zamzam tobias MD. Not Available [facility] (Centralized Electronic Ordering - All Locations) Patient Can Go To The Location Of Their Choice, [id number] 04/17/2021 23:33:27 Result Notes None recorded. Medical Equipment None Reported. Allergies Allergen ID Allergen Name Allergen Category Reaction Reaction Severity Criticality Documentation Date Start Date Code Code System Note Provider Name and Address Organization Details Recorded Time 252499 Product containin g penicilli n (product) medicatio n rash Not available Not available 04/15/2021 [id number] SNOMED SARAH Ferguson [address] [facility] [place], [address], [place] [facility] 14:32:31 Medications Name Sig Start Date Stop Date Status Note LastModified by Organization Details LastModified Time benztropine 0.5 mg tablet TAKE ONE TABLET BY MOUTH two (2) times a day active Not Available Not Available No t Available fluconazole 150 mg tablet active Not Available Not Available Not Available lisinopril 20 mg tablet TAKE ONE TABLET BY MOUTH 2 (two) times a day active Not Available Not Available No t Available Alcohol Pads USE 3 (THREE) TIMES A DAY active Not Available Not Available Not Available gabapentin 400 mg capsule TAKE ONE CAPSULE BY MOUTH 3 (THREE) TIMES A DAY active Not Available Not Available Not Available amlodipine 2.5 mg tablet TAKE ONE TABLET BY MOUTH DAILY active Not Available Not Available Not Available omeprazole 40 mg capsule,freddie yed release TAKE ONE CAPSULE BY MOUTH DAILY active Not Available Not Available Not Available simvastatin 40 mg tablet TAKE ONE TABLET BY MOUTH AT BEDTIME active Not Available Not Available No t Available meclizine 25 mg tablet TAKE ONE TABLET BY MOUTH 3 (THREE) TIMES A DAY active Not Available Not Available Not Available metoprolol tartrate 50 mg tablet TAKE ONE TABLET BY MOUTH 2 (two) times a day active Not Available Not Available No t Available docusate sodium 100 mg capsule TAKE ONE CAPSULE BY MOUTH two (2) times a day active Not Available Not Available No t Available zolpidem 5 mg tablet Take 1 tablet by mouth at bedtime active Not Available Not Available No t Available mirtazapine 15 mg tablet Take 1 tablet by mouth at bedtime active Not Available Not Available No t Available nystatin 100,000 unit/gram topical powder active Not Available Not Available Not Available lorazepam 1 mg tablet TAKE ONE TABLET BY MOUTH 3 (THREE) TIMES A DAY NEEDED active Not Available Not Available No t Available polyethylene glycol 3350 17 gram/dose oral powder DISSOLVE 17GM IN WATER AND DRINK DAILY active Not Available Not Available Not Available zolpidem 10 mg tablet TAKE ONE TABLET BY MOUTH ONCE A DAY AT BEDTIME NEEDED FOR insomnia active Not Available Not Available No t Available albuterol sulfate HFA 90 mcg/actuatio n aerosol inhaler INHALE 2 PUFFS BY MOUTH INTO THE lungs EVERY 4 HOURS NEEDED FOR COUGH, FOR WHEEZING, OR FOR SHORTNESS OF BREATH active Not Available Not Available No t Available carbidopa 25 mg-levodopa 100 mg tablet TAKE ONE TABLET BY MOUTH 3 (THREE) TIMES A DAY active Not Available Not Available Not Available risperidone 1 mg tablet TAKE 1 & 1/2 TABLETS BY MOUTH EVERY EVENING active Not Available Not Available No t Available loratadine 10 mg tablet TAKE ONE TABLET BY MOUTH DAILY active Not Available Not Available Not Available prazosin 2 mg capsule TAKE ONE CAPSULE BY MOUTH 2 (two) times a day active Not Available Not Available No t Available Novolog FlexPen U-100 Insulin aspart 100 unit/mL (3 mL) subcutaneous INJECT SUBCUTANEOU SLY 3 (THREE) TIMES A DAY WITH MEALS VIA sliding scale 150-200 22u; 201-250 23u; 251-300 24u; 301-350 25u; 351-400 26u) active Not Available Not Available No t Available Flovent HFA 220 mcg/actuatio n aerosol inhaler INHALE 2 PUFFS BY MOUTH INTO THE lungs 2 (two) times a day active Not Available Not Available No t Available cholecalcife rol (vitamin D3) 25 mcg (1,000 unit) tablet TAKE ONE TABLET BY MOUTH DAILY active Not Available Not Available Not Available FreeStyle Lite Strips USE TO TEST FINGER STICK BLOOD SUGAR 3 (THREE) TIMES A DAY active Not Available Not Available Not Available Lantus Solostar U-100 Insulin 100 unit/mL (3 mL) subcutaneous pen INJECT 45 UNITS INTO THE SKIN DAILY AT BEDTIME active Not Available Not Available No t Available Viibryd 20 mg tablet Take 1 tablet by mouth every morning active Not Available Not Available No t Available Comfort EZ Pen [place] 31 gauge x 5/16 USE DIRECTED 3 (THREE) TIMES A DAY active Not Available Not Available Not Available Jenny-moy 8.6 mg tablet TAKE 2 TABLETS BY MOUTH DAILY active Not Available Not Available Not Available Trulicity 1.5 mg/0.5 mL subcutaneous pen injector INJECT THE CONTENT OF 1 pen UNDER THE SKIN EVERY 7 DAYS active Not Available Not Available No t Available Trulicity 3 mg/0.5 mL subcutaneous pen injector Inject 3 mg into the skin every 7 days. active Not Available Not Available No t Available Trulicity 4.5 mg/0.5 mL subcutaneous pen injector INJECT 4.5mg SUBCUTANEOU SLY ONCE A WEEK active Not Available Not Available No t Available Vitals Date Recorded Body temperature Respiratory rate Heart rate Oxygen saturation Oxygen saturation in Arterial blood by Pulse oximetry Systolic And Diastolic Provider Name and Address Organization Details Last Updated DateTime 2 97.9 [degF] 18 /min 74 /min 94 % 94 % 122/68 mm[Hg] Not Available [facility] 14:32:44 Social History Question Answer Notes LastModified by Organizat ion Details LastModified Time Tobacco Smoking Status Never Smoker SARAH Ferguson [address], [place], [address], [place] [facility] 04/15/2021 14:36:31 Do You Have An Advance Directive? No [email or web address] Information not available 04/15/2021 What Is Your Code Status? Full Code [email or web address] Information not available 04/15/2021 Within The Past 12 Months, Has It Happened That The Food You Bought Just Didn't Last And You Didn't Have Money To Get More. Yes Would Like To Begin Meals On Wheels [email or web address] Information not available 04/15/2021 Within The Past 12 Months, Have You Worried That Your Food Would Run Out Before You Got Money To Buy More. Yes [email or web address] Information not available 04/15/2021 Fall Risk: Do You Feel Unsteady When Standing Or Walking? No [email or web address] Information not available 04/15/2021 Excessive Alcohol Or Drug Use No [email or web address] Information not available 04/15/2021 Does This Patient Have A PCP? Yes [email or web address] Information not available 04/15/2021 We Know From Many Of Our Patients That Covering All Of Their Costs Can Be Difficult At Times. This Can Cause Stress And Impact Health. In The Past Year, Have You Been Unable To Get Any Of The Following When It Was Really Needed? No [email or web address] Information not available 04/15/2021 What Is Your Housing Situation Today? I Have Housing [email or web address] Information not available 04/15/2021 Would You Like Help Connecting To Resources? None Information not available 04/15/2021 Sex: Unknown Functional Status Question Answer Note LastModified by Organization D etails LastModified Time Do you or have you ever used any other forms of tobacco or nicotine? No [email or web address] Information not available 04/15/2021 What is your level of alcohol consumption? None [email or web address] Information not available 04/15/2021 Mental Status None recorded. Family History Nothing Reported Notes:family h is positive f or cancer, HTN, Diabetes, Heart problems Medical History Condition Response Diabetes Y Coronary Artery Disease N CHF N Parkinson's Disease Y Cancer Stroke N Asthma Y COPD N Depression Y Hypothyroidism N High Cholesterol Y Rheumatoid Arthritis N Pulmonary Embolism N Hypertension Y A-fib Y Osteoporosis N Kidney Disease N Gynecological HistoryNo gynecological history recorded. Obstetrics History GPAL:G 0 P 0 0 0 0 Past Encounters Encounter ID Performer Location Encounter Start Date Encounter Closed Date Diagnosis/Indication Diagnosis SNOMED-CT Code Diagnosis ICD10 Code Diagnosis Note [id number] SARAH Ferguson [facility] [address] [place] [address] 04/15/2021 14:09:33 04/17/2021 21:47:31 Loose stool 341751493 R19.5 long history of loose stool, no blood or mucousshe has had some bloating, has history of H Pylorino recent fever, chills, no recent antibiotic s, no hospitaliz ationswill leave a cup to collect stool specimen and and will come out to car pick up driver and order a stool culture, if the speicimen is solid, please order also for H Pylori. Exposure t o communicable disease 601362646 Z20.822 because of her loose stool the nurse that visits her twice a day for medication s thought it could be COVID and thought she should be tested. will send PCR, advised if negative will not call, Health Concerns Section Related Observation LastModified by Organization Detai ls LastModified Time None Recorded Concern Status LastModified by Organization Details LastModified Time None Recorded Advance Directives Directive N: Payers Insurance Date Sequence Insurance Name Policy Number Policy Manuel Covered Member ID Manuel Member ID Guarantor Name 04/15/2021 1 *SELF PAY* Verito Whittington [id number] Verito Whittington 04/15/2021 2 [place] [facility] Verito Whittington [id number] Verito Whittington 04/17/2021 1 [facility] - DOS PRIOR TO 2022 - DUAL ELIGIBLE (MEDICARE REPLACEMENT/ADV ANTAGE - HMO) Verito Whittington [id number] Verito Whittington Notes Date Note Type Note Provider Name and Address Organization Details Recorded Time 04/15/2021 text/html New patient to , yesterday onset of loose stool x 3 , and today 1 time. no blood, no fever, no chills. No recent antibiotics, no recent hospitalizations , no travel outside the country. She sts her abdomen feels bloating. She has had hx of H Pylori in 2019, She sts the loose stool is an every day occurance for her, today was a little different in that she went 3 times and She had little abdominal discomfort this morning. Took some Pepto bismol this am and sts she feels better since taking it. The nurse comes twice a day for her meds, and told her she probably had covid We are called to do a COVID test.No exposure to COVID that she is aware of. She is eating and taking fluids without problems she has not seen her M in many months and is not followed regularly.She also sts yesterday and early this am she has had a cough, dry cough.no ear pain, she has sinus problems but not blowing to much . SARAH Ferguson [address], [place], [address], [place] [facility] 04/15/2021 15:37:25 OBGyn Episode No OBEpisode recorded.
--- OUTSIDE RECORDS SUMMARY | 2024-09-30 11:29 | XMS_ITS | Clinical Summary ---
Demographics Address [address] [place] [address] [address] [place] [address] Home Phone Preferred Language Uzbek; Castilian Marital Status Single Jehovah'S Witness Affiliation Unknown Race White Ethnic Group or Author Organization [facility] Address [address] [place] [address] Care Team Providers Care Conservator Artifacts Name Role Phone Bryon Serrano Primary Care Provider [phone] Source Comments PLEASE NOTE, if this patient is a minor, it may be UNLAWFUL to discuss sensitive information that is contained in these records (such as FAMILY PLANNING, MENTAL HEALTH or SUBSTANCE ABUSE) with the minor patient's parent or other person without the patient's specific authorization.[facility] Social History Tobacco Use Types Packs/Day Years Used Date Smoking Tobacco: Never Assessed Social Connections Answer Date Recorded Social Connections and Isolation 0 11/18/2021 Financial Resource Strain Answer Date R ecorded Financial Resource Strain 0 2021 Stress Answer Date Recorded Stress 0 11/18/2021 Physical Activity Answer Date Recorded Physical Activity 0 11/18/2021 Food Insecurity Answer Date Recorded Food 0 11/18/2021 Transportation Needs Answer Date Record ed Transportation 0 11/18/2021 Housing Stability Answer Date Recorded Housing 0 11/18/2021 Safety and Environment Answer Date Homero rded Safety 0 11/18/2021 Utilities Answer Date Recorded Utilities 0 11/18/2021 Employment Answer Date Recorded Employment 0 11/18/2021 Comments Unknown Sex and Gender Information Value Date Recorded Sex Assigned at Female 05/30/2017 10:36 AM PST Legal Sex Female 7:08 AM PST Gender Identity Female 05/30/2017 10:36 AM PST Sexual Orientation Straight 05/30/2017 10 :36 AM PST Last Filed Vital Signs Vital Sign Reading Time Taken Comments Blood Pressure - - Pulse - - Temperature - - Respiratory Rate - - Oxygen Saturation - - Inhaled Oxygen Concentration - - Weight 70.8 kg (156 lb) 05/30/2017 11:05 AM EST Height 154.9 cm (5' 1 ) 05/30/2017 11:05 AM EST Body Mass Index 29.48 05/30/2017 11:05 AM EST Plan of Treatment Health Maintenance Due Date Last Done Comments Hepatitis C Screening 1945 Tobacco Screening 1945 Hypertension Screening (#1) 1964 Medicare Annual Wellness Visit 1964 Imm-Zoster, Recombinant (1 of 2) 1996 Bone Density Screening 06/13/2011 Falls Prevention 06/13/2011 Imm-Pneumococcal 50+ (2 of 2 - PCV20 or PCV21) 09/21/2018 09/21/2017 Imm-RSV (adult) (1 - 1-dose 75+ series) 2021 [id number] (3 - season) 2023 021, 07/03/2020 Alcohol and Drug Screen 03/28/2024 Depression Annual Screen 03/28/2024 Imm-Influenza (#1) 2024 12/13/2019, 0 12/06/2018, 05/11/2018, Additional history exists Imm-DTaP/Tdap/Td (2 - Td or Tdap) 09/22/2027 018 Insurance [facility] SARAH LOVETT [id number] Care Teams Conservator Artifacts Relationship Specialty Start Date End Date Bryon Serrano PA [address] [place] [address] PCP - General FAMILY MEDICINESARAH 08/12/21
[2024-09-30 11:30] LABS: Hematocrit 34.1 % (37.0-47.0); Hemoglobin 10.9 g/dl (12.0-16.0); Imm Gran Abs Auto 0.06 X10*3/uL (0.00-0.03); Imm Gran Pct Auto 0.4 % (0.0-0.4); Lymphocytes Absolute Auto 2.1 X10*3/uL (1.2-4.9); Mean Corpuscular HGB Conc 32.0 g/dl (31.0-35.0); Mean Corpuscular Hemoglobin 24.4 pg (27.0-33.0); Mean Corpuscular Volume 76.3 fL (80.0-98.0); NRBC Abs Auto 0.000 X10*3/uL (0.0-0.012); NRBC Pct Auto 0.0 /100WBC (0.0-0.2); Platelet Count 280 X10*3/uL (160-400); Red Blood Count 4.47 X10*6/uL (4.20-5.50); White Blood Count 15.5 X10*3/uL (4.8-10.8)
[2024-09-30 11:58] LABS: Alanine Aminotransferase 27 U/L (0-31); Albumin Level 3.7 g/dL (3.5-5.0); Alkaline Phosphatase 117 U/L (39-117); Anion Gap 16 (12-20); Aspartate Amino Transferase 33 U/L (5-31); Blood Urea Nitrogen 8 mg/dL (9-16); Calcium 9.0 mg/dL (8.4-10.2); Carbon Dioxide 23 mmol/L (22-29); Chloride 98 mmol/L (96-108); Creatinine Clr Calc Pharmacy 75.6; Estimated Glomerular Filt Rate > 60; Potassium 4.6 mmol/L (3.3-5.1); Sodium 132 mmol/L (135-145); Total Protein 7.8 g/dL (6.5-8.0)
[2024-09-30 12:14] LABS: Resp Syncy Virus RNA Qual PCR NEGATIVE (Negative); SARS COV2 PCR INHOUSE NEGATIVE (Negative)
[2024-09-30 13:26] LABS: Appearance Urine Clear; Glucose Urine UA >=1000 mg/dL (Negative); PH 6.5 (5.0-9.0); Specific Gravity - Urine 1.020 (1.005-1.025); UMIC TRIGGER UACC YES
[2024-09-30 13:35] LABS: Cannabinoid Screen Urine Not Detected (Not Detect)
--- NOTE | 2024-09-30 13:40 | PHA.MEDREC ---
Pharmacy Consult ? Medication Reconciliation Pharmacy has reviewed the medication reconciliation completed by nursing. Utilized list from family that matched all claims.
--- NOTE | 2024-09-30 14:52 | MHC.CM.ED ---
Received consult for assessment of d/c needs: Met with pt using plastic bubble packer: 1:1 sitter present. Pt A&O x3 - unsure of actual date. States she resides with her boyfriend, has [facility] 2x daily for locked box med administration and EQUIPMENT SALES SPECIALIST care. She states she had been to [facility] in the past, uses a w/c and/or cane and feels safe at home and would like to return. Per discussion with ED care team, pt's dtr/HCP Yamini, and info from EMR, pt was found wandering last night at 3am by the police. She did not have on shoes and did not know where she was. Her boyfriend was sleeping and unaware she had left. Yamini is very concerned about pt's ability to function - states pt's boyfriend gives pt meds not prescribed to her which cause her to sleep for up to 20 hours/day. Yamini notes she has cameras in her mother's house and can support this claim. Of note, pt's tox screen was negative but it is unknown what the meds are that she is reportedly given by him. Yamini states pt compensates very well for her dementia but should not be left alone. She confirms information pt gave to ED CM. Discussed HCP activation and SNF placement: Yamini is requesting a capacity eval for activation of HCP and PT eval for placement. ED care team agreeable to both - Yamini and pt are aware that pt will board in ED until PT and psych have conducted the evals. No referrals have been made at this time - pt able to ambulate and seems not to have a skilled need for placement: needs seem more jail. Yamini will bring a copy of pt's HCP to the ED tomorrow. ED CM to follow for finalization of d/c plans.
[2024-09-30 19:36] LABS: Glucose, Whole Blood 135 mg/dL (60-115)
[2024-09-30] MEDS: Fluticasone Propionate 250 MCG BLST.W.DEV 2 PUFF INHALE (21:25)
[2024-09-30] MEDS: Insulin Glargine,Hum.rec.anlog 100 UNIT/ML 10 ML VIAL 30 UNIT SUBCUT (21:29)
[2024-09-30 21:30] LABS: Glucose, Whole Blood 231 mg/dL (60-115)
--- NOTE | 2024-09-30 23:49 | PC.NURSE ---
Assumed care of patient at 23:00. Patient resting comfortably on stretcher bed, respirations and unlabored, not in acute distress, O2 Sat 94% RA, HR 67. Call doty within patient's reach, plan of care ongoing.
[2024-10-01] VITALS (10 sets, daily range): BP systolic 106–149; BP diastolic 52–71; PULSE 67–94; RESP 16–18; TEMP 36.2–36.7; O2SAT 92–95
[2024-10-01 08:14] LABS: Glucose, Whole Blood 255 mg/dL (60-115)
[2024-10-01] MEDS: Fluticasone Propionate 250 MCG BLST.W.DEV 2 PUFF INHALE ×2 (08:26→20:12)
--- NOTE | 2024-10-01 09:17 | MHC.CM.ED ---
Addendum entered by Erin Carter 10/01/24 09:49: Copy of HCP obtained from [facility]. Original Note: Patient remains in ER overflow. Copy of HCP requested from [facility]. Physical therapy eval completed. No skill indicated. Psych consult for capacity is pending. OT eval for MOCA & ACL is pending. Continue to monitor for d/c needs.
[2024-10-01 11:21] LABS: Glucose, Whole Blood 238 mg/dL (60-115)
--- NOTE | 2024-10-01 11:32 | P.CNPS_ITS ---
History of Present Illness Date of Service: 10/01/2024 Chief Complaint: medicated with unknown meds Reason for Consult: capacity Discussed with referring provider: Yes Sources of Information: patient interviewed, chart reviewed and crisis/core team assessment reviewed HPI Narrative: Ms. Whittington is a 79 year-old woman with hx of schizoaffective disorder, dementia who was brought by daughter after pt left her apartment at around 2am and was found by bystader who brought her to the police. Pt seemed to struggle giving information as to who to contact and where she lives. Pertient labs completed in the ED include cbc with leukocytosis (WBC 15), microcytic anemia with stable H&H, CMP shows mild hyponatremia (132) however corrected base on blood glucose actual level is 135. BUN 8, Cr 0.63, A1c 8.7%. TSH 1.49, B12 335, Folate 12.5. UA did not show UTI, but positive for protein and glucose. Utox is negative. Pt seen in ED with daughter by her side. She presents as calm and cooperative. She is known to this assembly instructions writer from previous psychiatric assessment at different agency. Pt reports she does not remember much as to what happened. She does not remember going out of her apartment nor being found by someone else. She does remember being at police station. Note that patient is on ambien which can cause parasomnias and amnesia as to what happens at night. Daughter reports she has been diagnosed with dementia. Pt is currently NOT oriented to month nor place. She does know this is the hospital but thinks we are in [place]. She thinks the year is 2021. Daughter reports impairments in orientation have been going on for about one year. She has a hx of psychosis, currently seems stable. No overt delusional content noted or reported. She has had difficulty sleeping. Pt denies suicidal or homicidal ideation. She also denies symptoms of depression currently. She sees psychiatric provider regularly. Past Psychiatric History: OP: Yelitza LOPEZ Past medication trials: risperidone, vibryd, remeron, ativan. Medical Evaluation Reviewed: Yes Diagnostics Vital Signs (24Hr): Vital Signs - 24 hr 09/30/24 12:00 09/30/24 14:00 09/30/24 21:21 Temperature 98.6 F 98.0 F 97.7 F Pulse Rate 82 75 74 Respiratory Rate 16 16 16 Blood Pressure 147/90 H 102/57 L 109/69 Pulse Oximetry 97 99 93 Oxygen Delivery Method Room Air Room Air Room Air 09/30/24 21:24 09/30/24 21:26 09/30/24 21:45 Temperature Pulse Rate 74 Respiratory Rate Blood Pressure 109/69 110/45 L 124/58 L Pulse Oximetry Oxygen Delivery Method 10/01/24 03:05 10/01/24 08:00 10/01/24 08:25 Temperature 97.1 F Pulse Rate 67 94 Respiratory Rate 16 18 Blood Pressure 120/52 L 146/59 H 146/59 H Pulse Oximetry 95 95 Oxygen Delivery Method Room Air Room Air 10/01/24 08:27 10/01/24 09:14 Temperature Pulse Rate 90 90 Respiratory Rate 16 Blood Pressure 149/59 H Pulse Oximetry Oxygen Delivery Method BMI result Body Mass Index 28.3 Labs 10/01/24 13:04 09/30/24 11:20 Labs: Laboratory Results - last 48 hr 09/30/24 09/30/24 09/30/24 11:20 11:21 13:03 WBC 15.5 H RBC 4.47 Hgb 10.9 L Hct 34.1 L MCV 76.3 L MCH 24.4 L MCHC 32.0 RDW 15.3 Plt Count 280 MPV 8.3 L Immature Gran % (Auto) 0.4 Neut % (Auto) 79.7 H Lymph % (Auto) 13.6 L Winkler % (Auto) 5.7 Eos % (Auto) 0.2 Baso % (Auto) 0.4 Lymph # (Auto) 2.1 Winkler # (Auto) 0.9 Eos # (Auto) 0.0 Baso # (Auto) 0.1 Abs Immat Gran (auto) 0.06 H Absolute Neuts (auto) 12.4 H Absolute Nucleated RBC 0.000 Nucleated RBC % (auto) 0.0 Sodium 132 L Potassium 4.6 Chloride 98 Carbon Dioxide 23 Anion Gap 16 BUN 8 L Creatinine 0.63 Estim Creat Clear Calc 75.6 Estimated GFR > 60 POC Glucose Random Glucose 242 H Calcium 9.0 Total Bilirubin 0.2 AST 33 H ALT 27 Alkaline Phosphatase 117 Total Protein 7.8 Albumin 3.7 Urine Color Yellow Urine Appearance Clear Urine pH 6.5 Ur Specific [place] 1.020 Urine Protein 30 (1+) H Urine Glucose (UA) >=1000 H Urine Ketones Trace Urine Blood Negative Urine Nitrite Negative Ur Leukocyte Esterase Negative Urine RBC 0-2 Urine WBC 0-5 Ur Squamous Epith Cells 3-5 Urine Bacteria Trace Hyaline Casts 0-2 Urine Opiates Screen Not Detected Ur Buprenorphine Scrn Not Detected Ur Oxycodone Screen Not Detected Urine Methadone Screen Not Detected Urine Fentanyl Screen Not Detected Ur Barbiturates Screen Not Detected Ur Phencyclidine Scrn Not Detected Ur Amphetamines Screen Not Detected U Benzodiazepines Scrn Not Detected Urine Cocaine Screen Not Detected U Marijuana (THC) Screen Not Detected Ethyl Alcohol < 10 Influenza Type A (PCR) NEGATIVE Influenza Type B (PCR) NEGATIVE RSV RNA Qual (PCR) NEGATIVE SARS-CoV-2 RNA (RT-PCR) NEGATIVE 09/30/24 09/30/24 10/01/24 19:33 21:28 08:11 WBC RBC Hgb Hct MCV MCH MCHC RDW Plt Count MPV Immature Gran % (Auto) Neut % (Auto) Lymph % (Auto) Winkler % (Auto) Eos % (Auto) Baso % (Auto) Lymph # (Auto) Winkler # (Auto) Eos # (Auto) Baso # (Auto) Abs Immat Gran (auto) Absolute Neuts (auto) Absolute Nucleated RBC Nucleated RBC % (auto) Sodium Potassium Chloride Carbon Dioxide Anion Gap BUN Creatinine Estim Creat Clear Calc Estimated GFR POC Glucose 135 H 231 H 255 H Random Glucose Calcium Total Bilirubin AST ALT Alkaline Phosphatase Total Protein Albumin Urine Color Urine Appearance Urine pH Ur Specific [place] Urine Protein Urine Glucose (UA) Urine Ketones Urine Blood Urine Nitrite Ur Leukocyte Esterase Urine RBC Urine WBC Ur Squamous Epith Cells Urine Bacteria Hyaline Casts Urine Opiates Screen Ur Buprenorphine Scrn Ur Oxycodone Screen Urine Methadone Screen Urine Fentanyl Screen Ur Barbiturates Screen Ur Phencyclidine Scrn Ur Amphetamines Screen U Benzodiazepines Scrn Urine Cocaine Screen U Marijuana (THC) Screen Ethyl Alcohol Influenza Type A (PCR) Influenza Type B (PCR) RSV RNA Qual (PCR) SARS-CoV-2 RNA (RT-PCR) 10/01/24 11:14 WBC RBC Hgb Hct MCV MCH MCHC RDW Plt Count MPV Immature Gran % (Auto) Neut % (Auto) Lymph % (Auto) Winkler % (Auto) Eos % (Auto) Baso % (Auto) Lymph # (Auto) Winkler # (Auto) Eos # (Auto) Baso # (Auto) Abs Immat Gran (auto) Absolute Neuts (auto) Absolute Nucleated RBC Nucleated RBC % (auto) Sodium Potassium Chloride Carbon Dioxide Anion Gap BUN Creatinine Estim Creat Clear Calc Estimated GFR POC Glucose 238 H Random Glucose Calcium Total Bilirubin AST ALT Alkaline Phosphatase Total Protein Albumin Urine Color Urine Appearance Urine pH Ur Specific [place] Urine Protein Urine Glucose (UA) Urine Ketones Urine Blood Urine Nitrite Ur Leukocyte Esterase Urine RBC Urine WBC Ur Squamous Epith Cells Urine Bacteria Hyaline Casts Urine Opiates Screen Ur Buprenorphine Scrn Ur Oxycodone Screen Urine Methadone Screen Urine Fentanyl Screen Ur Barbiturates Screen Ur Phencyclidine Scrn Ur Amphetamines Screen U Benzodiazepines Scrn Urine Cocaine Screen U Marijuana (THC) Screen Ethyl Alcohol Influenza Type A (PCR) Influenza Type B (PCR) RSV RNA Qual (PCR) SARS-CoV-2 RNA (RT-PCR) Mental Status Exam Mental Status Exam Narrative: Appearance: wearing hospital gown, fair hygiene, in NAD Behavior: cooperative and friendly Psychomotor: involuntary perioral movement, which per neurologist at [facility] resting tremor. Speech: clear, normal rate/rhythm/volume, spontaneous TP: mostly linear TC: worried about incident getting lost and having no recollection about it Mood: good Affect: congruent SI: denies HI; denies VH/AH: no current signs Delusions: no overt delusional content. Insight/judgment: impaired x 2. Memory/cog: alert, not oriented to month, year, place. per daughter problems with orientation for about one year. pending MOCA/ACL. Medications Medications Current Medications Acetaminophen (Acetaminophen 325 Mg Tablet) 650 mg PO Q6H PRN PRN Reason: Pain, Moderate(Pain Scale 4-6) Last Admin: 10/01/24 09:18 Dose: 650 mg Amlodipine Besylate (Amlodipine Besylate 5 Mg Tablet) 5 mg PO DAILY [facility] Last Admin: 10/01/24 08:25 Dose: 5 mg Atorvastatin Calcium (Atorvastatin Calcium 20 Mg Tablet) 20 mg PO BEDTIME [facility] Last Admin: 09/30/24 21:27 Dose: 20 mg Docusate Sodium (Docusate Sodium 100 Mg Capsule) 100 mg PO BID PRN PRN Reason: Constipation Fluticasone Propionate (Fluticasone Propionate 250 Mcg Blst.W.Dev) 2 puff INHALE RBID [facility] Last Admin: 10/01/24 08:26 Dose: 2 puff Gabapentin (Gabapentin 400 Mg Capsule) 400 mg PO TID [facility] Last Admin: 10/01/24 08:25 Dose: 400 mg Insulin Glargine (Insulin Glargine,Hum.Rec.Anlog 100 Unit/Ml 10 Ml Vial) 30 unit SUBCUT BEDTIME [facility] Last Admin: 09/30/24 21:29 Dose: 30 unit Insulin Human Lispro (Insulin Lispro 100 Unit/Ml 3 Ml Vial) 0 unit SUBCUT QIDACHS [facility]; Protocol Last Admin: 10/01/24 08:25 Dose: 6 unit Lisinopril (Lisinopril 20 Mg Tablet) 20 mg PO DAILY [facility] Last Admin: 10/01/24 08:20 Dose: 20 mg Loratadine (Loratadine 10 Mg Tablet) 10 mg PO DAILY [facility] Last Admin: 10/01/24 08:26 Dose: 10 mg Lorazepam (Lorazepam 1 Mg Tablet) 1 mg PO BID [facility] Last Admin: 10/01/24 08:27 Dose: 1 mg Melatonin (Melatonin 3 Mg Tablet) 6 mg PO BEDTIME [facility] Last Admin: 09/30/24 21:27 Dose: Not Given Metoprolol Tartrate (Metoprolol Tartrate 50 Mg Tablet) 50 mg PO BID [facility]; Protocol Last Admin: 10/01/24 09:14 Dose: 50 mg Mirtazapine (Mirtazapine 30 Mg Tablet) 30 mg PO BEDTIME [facility] Last Admin: 09/30/24 21:45 Dose: 30 mg Non-Formulary Medication (Dulaglutide [Trulicity]) 4.5 mg SUBCUT WE@0900 [facility] Omeprazole (Omeprazole 40 Mg Capsule.Dr) 40 mg PO DAILY@0630 [facility] Last Admin: 10/01/24 05:46 Dose: 40 mg Polyethylene Glycol (Polyethylene Glycol 3350 17 Gm Powd.Pack) 17 gm PO DAILY [facility] Last Admin: 10/01/24 08:27 Dose: 17 gm Risperidone (Risperidone 0.25 Mg Tablet) 0.25 mg PO DAILY [facility] Last Admin: 10/01/24 09:14 Dose: 0.25 mg Risperidone (Risperidone 1 Mg Tablet) 1 mg PO BEDTIME [facility] Last Admin: 09/30/24 21:45 Dose: 1 mg Topiramate (Topiramate 25 Mg Tablet) 25 mg PO BID [facility] Last Admin: 10/01/24 08:27 Dose: 25 mg Triamcinolone Acetonide (Triamcinolone Acet 0.1 % Oint 15 Gm Tube) 1 appl TOPICAL BID [facility] Last Admin: 09/30/24 23:46 Dose: Not Given Vilazodone HCl (Vilazodone Hcl 20 Mg Tablet) 40 mg PO DAILY [facility] Last Admin: 10/01/24 09:35 Dose: 40 mg Zolpidem Tartrate (Zolpidem Tartrate 5 Mg Tablet) 10 mg PO BEDTIME [facility] Last Admin: 09/30/24 21:27 Dose: 10 mg Allergies Allergies Allergy/AdvReac Type Severity Reaction Status Date / Time No Known Allergies Allergy Verified 09/30/24 11:09 Assessment & Plan Assessment & Plan (1) Schizoaffective disorder: Status: Acute Code(s): F25.9 - Schizoaffective disorder, unspecified (2) Major neurocognitive disorder due to Alzheimer's disease, without behavioral disturbance: Status: Acute Code(s): G30.9 - Alzheimer's disease, unspecified; F02.80 - Dementia in other diseases classified elsewhere, unspecified severity, without behavioral disturbance, psychotic disturbance, mood disturbance, and anxiety Plan Ms. Whittington is a 79 year-old woman with hx of schizoaffective disorder, dementia seems AD type who was found wondering at night with no shoes and no recollection of what happened. She is on ambien therefore such incident may have been product of parasomnia and amnestic effects of ambien. However, her dementia also appears to be advanced at this point, affecting her orientation for about one year. She does NOT present with delirium and therefore, current cognitive impairments seem to be related to underlying dementia. OT completed MOCA scored 4/22, ACL 3.4 showing severe cognitive impairment and need for 24/7 supervision. Discussed with pt and her daughter who is HCP d/cing ambien. continue ativan 1mg po BID. continue current dose of risperidone. also continue combination of vibryd and remerom. She does NOT present with acute psychiatric symptoms despite hx of psychiatric condition (stable otherwise on current medications). PLAN 1. Pt's dementia is advanced and ACL/MOCA suggest need for 24/7 supervision. 2. recommend MD to invoke HCP 3. d/c ambien 4. no acute psychiatric symptoms- stable on current medications. Total time managing care of this patient today ____ minutes.
[2024-10-01] MEDS: Triamcinolone Acet 0.1 % Oint 15 GM TUBE 1 APPL TOPICAL ×2 (11:42→20:46)
[2024-10-01 13:13] LABS: Hematocrit 32.1 % (37.0-47.0); Hemoglobin 10.4 g/dl (12.0-16.0); Imm Gran Abs Auto 0.05 X10*3/uL (0.00-0.03); Imm Gran Pct Auto 0.4 % (0.0-0.4); Lymphocytes Absolute Auto 2.7 X10*3/uL (1.2-4.9); MANUAL DIFF FLAG NO; Mean Corpuscular HGB Conc 32.4 g/dl (31.0-35.0); Mean Corpuscular Hemoglobin 24.6 pg (27.0-33.0); Mean Corpuscular Volume 75.9 fL (80.0-98.0); NRBC Abs Auto 0.000 X10*3/uL (0.0-0.012); NRBC Pct Auto 0.0 /100WBC (0.0-0.2); Platelet Count 263 X10*3/uL (160-400); Red Blood Count 4.23 X10*6/uL (4.20-5.50); White Blood Count 13.0 X10*3/uL (4.8-10.8)
[2024-10-01 13:33] LABS: Iron 43 mcg/dL (30-160); Percent Iron Saturation 17 % (15-50); Total Iron Binding Capacity 257 mcg/dL (228-428); Unsaturated Iron Binding 214 ug/dL
[2024-10-01 13:38] LABS: Hemoglobin A1C 198.2966 umol/L; Total Hemoglobin (HGBA1C) 2769.5664 umol/L
[2024-10-01 14:07] LABS: Folate 12.5 ng/mL (> or = 4.0); Vitamin B12 335 pg/mL (200-900)
--- NOTE | 2024-10-01 15:58 | PC.NURSE ---
report has been taken from previous rn pt is awake and alert and is resting comfortably. call button is within reach and bed rails are up.
[2024-10-01 16:41] LABS: Glucose, Whole Blood 164 mg/dL (60-115)
[2024-10-01 20:24] LABS: Glucose, Whole Blood 277 mg/dL (60-115)
[2024-10-01] MEDS: Insulin Glargine,Hum.rec.anlog 100 UNIT/ML 10 ML VIAL 30 UNIT SUBCUT (20:56)
[2024-10-02] VITALS (8 sets, daily range): BP systolic 119–132; BP diastolic 56–65; PULSE 57–80; RESP 12–16; TEMP 36–36.7; O2SAT 92–97
--- NOTE | 2024-10-02 01:49 | PC.NURSE ---
triamcinolone and fluticasone placed in patient specific bin - bed 3
--- NOTE | 2024-10-02 05:39 | PC.NURSE ---
pt calm and coooperative. alert, oriented to person. stated we are in [place], year is 2021, and unsure of why she is here. pills whole with thin liquids. prn tylenol for mild headache. RT adminsitered inhaler/ lungs dim in bases. pt states she felt slightly SOB but stated it normalized after inhaler, 95% SpO2 while awake in high fowlers. WOB appears normal. speaks clearly mostly marshallese with some spanish. ambulated twice with light assist producing continent asymptomatic voids of urine. states last BM 09/30. call doty in reach. appears to be sleeping since last set of vitals with eyes closed, nonlabored even respirations. belongings and call doty in reach. bed alarm on. plan of care ongoing
[2024-10-02 07:23] LABS: Glucose, Whole Blood 166 mg/dL (60-115)
[2024-10-02] MEDS: Fluticasone Propionate 250 MCG BLST.W.DEV 2 PUFF INHALE ×2 (07:28→19:19)
[2024-10-02 11:35] LABS: Glucose, Whole Blood 204 mg/dL (60-115)
[2024-10-02] MEDS: Triamcinolone Acet 0.1 % Oint 15 GM TUBE 1 APPL TOPICAL (11:37)
--- NOTE | 2024-10-02 11:46 | MHC.CM.ED ---
Patient remains in ER overflow. MOCA=07/17. ACL=3.4. Per Katelynn, satellite television installer, HCP should be invoked and patient will need 24/[address] Enciso asked to invoke HCP. Spoke with patient's daughter/HCP, Yamini, via telephone at [phone]. Yamini reports patient lives in [address] alone. Yamini also lives alone and works. Yamini will not be able to provide 24/7 supervision for patient at this time. Yamini agreeable to SNF placement being found for fci care. Referral will be broadcasted locally. Bed offers will be presented. Yamini aware placement may be difficult to find d/t 4 facilities closing locally. Continue to monitor for d/c needs.
--- NOTE | 2024-10-02 14:16 | MHC.CM.ED ---
Addendum entered by Erin Carter 10/02/24 15:57: Received return telephone call from Yamini. Yamini would like to tour facilities. Liaisons have been asked to reach out to Yamini to arrange tours. Original Note: [facility] and [facility] are the only facilities that are willing to offer a bed. Spoke with daughter, Yamini, via telephone at [phone]. Bed offers discussed with Yamini. Yamini will speak to her sister and provide 1st choice to . Continue to monitor for d/c needs.
--- NOTE | 2024-10-02 15:25 | MHC.EDTECH ---
Pt resting in bed, asking to see her daughter, no other needs at this time
[2024-10-02 16:40] LABS: Glucose, Whole Blood 233 mg/dL (60-115)
--- NOTE | 2024-10-02 17:01 | MHC.EDTECH ---
pt helped with phone to call daughter, tearful on phone
[2024-10-02 21:19] LABS: Glucose, Whole Blood 212 mg/dL (60-115)
[2024-10-02] MEDS: Insulin Glargine,Hum.rec.anlog 100 UNIT/ML 10 ML VIAL 30 UNIT SUBCUT (21:29)
[2024-10-03 06:00] VITALS: BP 140/81; PULSE 75; RESP 16; TEMP 36.7; O2SAT 96
[2024-10-03 07:41] LABS: Glucose, Whole Blood 160 mg/dL (60-115)
[2024-10-03] MEDS: Triamcinolone Acet 0.1 % Oint 15 GM TUBE 1 APPL TOPICAL ×2 (08:06→21:59)
[2024-10-03] MEDS: Fluticasone Propionate 250 MCG BLST.W.DEV 2 PUFF INHALE ×2 (08:29→21:04)
[2024-10-03 08:33] VITALS: PULSE 62; RESP 18; O2SAT 92
[2024-10-03 12:08] LABS: Glucose, Whole Blood 199 mg/dL (60-115)
[2024-10-03 14:03] VITALS: BP 111/74; PULSE 72; RESP 16; TEMP 36.8; O2SAT 95
[2024-10-03 16:28] LABS: Glucose, Whole Blood 159 mg/dL (60-115)
--- NOTE | 2024-10-03 16:29 | MHC.EDTECH ---
Patient family gave her a shower and total bed changed
--- NOTE | 2024-10-03 17:31 | MHC.EDTECH ---
Patient sitting up in chair eating dinner
[2024-10-03 18:41] VITALS: BP 125/61; PULSE 75; RESP 16; TEMP 36.3; O2SAT 94
[2024-10-03 20:15] VITALS: BP 149/79
[2024-10-03 20:28] LABS: Glucose, Whole Blood 186 mg/dL (60-115)
[2024-10-03 20:36] VITALS: BP 149/79; PULSE 76
[2024-10-03] MEDS: Insulin Glargine,Hum.rec.anlog 100 UNIT/ML 10 ML VIAL 30 UNIT SUBCUT (20:37)
--- NOTE | 2024-10-03 22:30 | PC.NURSE ---
Pt a/ox2, with periods of confusion. Medicated as per may whole with water- pt tolerated well. call doty within reach. Elopement band on wrist, and call doty within reach. plan of care ongoing
[2024-10-04] VITALS (9 sets, daily range): BP systolic 110–151; BP diastolic 60–70; PULSE 71–95; RESP 14–18; TEMP 36.3–36.8; O2SAT 90–97
[2024-10-04 07:20] LABS: Glucose, Whole Blood 170 mg/dL (60-115)
[2024-10-04] MEDS: Fluticasone Propionate 250 MCG BLST.W.DEV 2 PUFF INHALE ×2 (10:11→19:47)
--- NOTE | 2024-10-04 10:24 | MHC.CM.ED ---
Patient remains in ER overflow. Plan is for daughters to take patient home on Tuesday when more services can be provided. Each daughter will provide overnight coverage. Patient was active with [facility] prior to coming to the ER. [facility] made aware patient will d/c home with family on Tuesday. ER d/c summary will be faxed to [phone]. Continue to monitor for d/c needs.
[2024-10-04 11:53] LABS: Glucose, Whole Blood 192 mg/dL (60-115)
--- NOTE | 2024-10-04 12:59 | PC.NURSE ---
Pt confused, tearful, asking to go home with her daughter; attempted to contact daughter/no answer at this time; pt reassured; pt has no c/o pain at this time
[2024-10-04 17:04] LABS: Glucose, Whole Blood 158 mg/dL (60-115)
[2024-10-04 20:02] LABS: Glucose, Whole Blood 237 mg/dL (60-115)
[2024-10-04] MEDS: Insulin Glargine,Hum.rec.anlog 100 UNIT/ML 10 ML VIAL 30 UNIT SUBCUT (20:06)
--- NOTE | 2024-10-04 22:18 | PC.NURSE ---
Pt up to bathroom with standby assist. Pt states diarrhea for the past couple of days. Notified Dr. Harmon and Fannie administered per physicican order. Call doty in reach and pt understands use. Fall precautions in place.
[2024-10-05 05:50] VITALS: BP 135/70; PULSE 64; RESP 14; TEMP 36.1; O2SAT 96
[2024-10-05 07:21] LABS: Glucose, Whole Blood 168 mg/dL (60-115)
[2024-10-05] MEDS: Fluticasone Propionate 250 MCG BLST.W.DEV 2 PUFF INHALE (07:43)
--- NOTE | 2024-10-05 07:51 | PC.NURSE ---
Patient is a 79 year-old woman with hx of schizoaffective disorder, dementia who was brought by daughter after pt left her apartment at around 2am and was found by bystader who brought her to the police. Pt seemed to struggle giving information as to who to contact and where she lives. Patient alert and macedonian speaking. Lungs clear bilat. Respirations even and non-labored. Abdomen soft, non-tender with positive bowel sounds. Positive pedal pulses with no edema. Able to ambulate independently. Plan for discharge home with [facility] services today.
--- NOTE | 2024-10-05 08:39 | MHC.CM.ED ---
Addendum entered by Erin Carter 10/05/24 10:08: Received return telephone call from Yamini. Yamini will be in the ER at 3pm to transport patient home. Patient, Keila DRAPER and Joana JACKSON aware. Original Note: Patient remains in ER overflow. Supposed to d/c home with daughters and resumption of [facility] and [employer] [employer]. Attempted to speak to Yamini via telephone at [phone]. Left message requesting return telephone call to determine when patient will be transported home. Continue to monitor for d/c needs.
[2024-10-05] MEDS: Triamcinolone Acet 0.1 % Oint 15 GM TUBE 1 APPL TOPICAL (08:55)
[2024-10-05 14:00] VITALS: BP 119/56; PULSE 66; RESP 16; TEMP 36.4; O2SAT 97
[2024-10-05 16:01] VITALS: BP 119/56; PULSE 66; RESP 16; TEMP 36.4; O2SAT 97
[2024-10-08 00:46] LABS: Glucose, Whole Blood 217 mg/dL (60-115)
== END 2024-10-05 16:02 | disposition home or self-care (01) ==
PROVIDERS: Registered Nurse Emergency; Social Worker; Emergency Provider Emergency Medicine; PCP Internal Medicine
DX: G30.9 Alzheimer's disease, unspecified (principal); F02.82 Dementia in other diseases classified elsewhere, unspecified severity, with psychotic disturbance; F25.9 Schizoaffective disorder, unspecified; F44.89 Other dissociative and conversion disorders; R53.1 Weakness; R25.1 Tremor, unspecified; E11.9 Type 2 diabetes mellitus without complications; R26.81 Unsteadiness on feet; Z79.899 Other long term (current) drug therapy; Z79.4 Long term (current) use of insulin; Z51.81 Encounter for therapeutic drug level monitoring; Z03.818 Encounter for observation for suspected exposure to other biological agents ruled out
CPT/HCPCS: 36415; 71045; 80053; 80307; 81001; 82607; 82746; 82947; 83036; 83540; 84443; 85025; 87637; 97161; 97165; 99285

== ENCOUNTER → 2024-09-30 11:20 | Outpatient (BNV) | payer OTHER, SELFPAY | PROVIDERS: Emergency Provider Emergency Medicine; PCP Internal Medicine; Visit Provider Social Worker | DX: F25.9 Schizoaffective disorder, unspecified (principal); G30.9 Alzheimer's disease, unspecified; F02.80 Dementia in other diseases classified elsewhere, unspecified severity, without behavioral disturbance, psychotic disturbance, mood disturbance, and anxiety | CPT/HCPCS: 99285 ==

== ENCOUNTER → 2024-09-30 13:13 | Outpatient (BNV) | payer OTHER, SELFPAY | PROVIDERS: Emergency Provider Emergency Medicine; PCP Internal Medicine; Visit Provider Nuclear Medicine | DX: R41.0 Disorientation, unspecified (principal); R53.1 Weakness | CPT/HCPCS: 71045 ==